=== PATIENT | female | born 1960 | race African-American/Black ===

== ENCOUNTER 2017-09-06 09:35 | Emergency (ER) | payer MEDICAID ==
[~2017-09-06] VITALS: Ht 177.8 cm; Wt 104.5 kg
[~2017-09-06 09:35] MED LIST: ALBU8.5H8 IH; ASPI81 PO; ATEN50TA PO; GABA-531 PO; GLIP10 PO; HYDR-3705 PO; LOSA50TA37 PO; METF500T4 PO
[2017-09-06] MEDS ORDERED: INSLAN SQ (09:41)
[2017-09-06] MEDS ORDERED: ATOR10TA84 PO (09:41)
[2017-09-06] MEDS ORDERED: SODIUM CHLORIDE 0.9% 1,000 ML IV ONE (10:00)
[2017-09-06 10:20] LABS: BASOPHILS # (AUTO) 0.04 K/uL (0.00-0.20); BASOPHILS % (AUTO) 0.5 % (0.0-2.0); EOSINOPHILS # (AUTO) 0.15 K/uL (0.00-0.70); EOSINOPHILS % (AUTO) 1.66 % (1.0-6.0); HEMOGLOBIN 12.1 g/dL (12.0-16.0); LYMPHOCYTES % (AUTO) 33.9 % (22.0-44.0); MEAN CORPUSCULAR HEMOGLOBIN 30.6 pg (26.0-34.0); MEAN CORPUSCULAR HGB CONC 33.4 G/dL (31.0-37.0); MEAN CORPUSCULAR VOLUME 92 fL (80-100); MONOCYTES # (AUTO) 0.5 K/uL (0.1-1.0); MONOCYTES % (AUTO) 5.1 % (2.0-9.0); NEUTROPHILS # (AUTO) 5.2 K/uL (1.8-7.7); NEUTROPHILS % (AUTO) 58.9 % (40.0-70.0); PLATELET COUNT (AUTO) 184 K/uL (150-450); RED BLOOD CELL COUNT(AUTO) 3.94 MIL/uL (4.00-5.20); RED CELL DISTRIBUTION WIDTH 12.8 % (11.5-14.5); WHITE BLOOD COUNT (AUTO) 8.9 K/uL (4.5-11.0)
[2017-09-06 10:32] LABS: ANION GAP 10 mmol/L (8-16); CALCIUM, TOTAL 9.4 mg/dL (8.8-10.5); CARBON DIOXIDE 25 mmol/L (22-29); CHLORIDE 102 mmol/L (98-107); CREATININE 0.83 mg/dL (0.60-1.30); GLOMERULAR FILTR. RATE CALC > 60 mL/min (>60); POTASSIUM 4.2 mmol/L (3.5-5.1); SODIUM SERUM 137 mmol/L (136-145); UREA NITROGEN, BLOOD 15 mg/dL (7-18)
[2017-09-06 10:45] VITALS: BP 135/78
[2017-09-06] MEDS ORDERED: ACETAMINOPHEN 325 MG TABLET PO ONE (10:45)
[2017-09-06 11:03] LABS: GLUCOSE,POINT OF CARE 361 MG/DL (70-110)
[2017-09-06 11:33] LABS: GLUCOSE COMMENT 1 Doctor Notified; GLUCOSE,POINT OF CARE 226 MG/DL (70-110)
== END 2017-09-06 12:01 | disposition home or self-care (01) ==
LOC: EMS 09:45
DX: E11.65 Type 2 diabetes mellitus with hyperglycemia (principal); J06.9 Acute upper respiratory infection, unspecified; Z79.4 Long term (current) use of insulin; J44.9 Chronic obstructive pulmonary disease, unspecified; E78.00 Pure hypercholesterolemia, unspecified; I10 Essential (primary) hypertension; Z87.891 Personal history of nicotine dependence; Z79.82 Long term (current) use of aspirin
CPT/HCPCS: 36415; 71010; 80048; 82962; 85025; 96360; 99285; J7030

== ENCOUNTER 2018-03-25 13:34 | Emergency (ER) | payer MEDICAID ==
[~2018-03-25] VITALS: Ht 172.7 cm; Wt 84.1 kg
[~2018-03-25 13:34] MED LIST changes: +ATOR10TA84 PO; -GLIP10 PO; +INSLAN SQ
[2018-03-25 13:41] VITALS: BP 180/100
[2018-03-25] MEDS ORDERED: IBUPROFEN 800 MG TABLET PO ONE (13:45)
[2018-03-25] MEDS ORDERED: PRED1 PO (14:11)
[2018-03-25] MEDS ORDERED: GLIP5 PO (14:11)
[2018-03-25 15:03] LABS: GLUCOSE,POINT OF CARE 348 MG/DL (70-110)
== END 2018-03-25 15:37 | disposition home or self-care (01) ==
LOC: EMS 13:36
DX: S60.221A Contusion of right hand, initial encounter (principal); E11.9 Type 2 diabetes mellitus without complications; J45.909 Unspecified asthma, uncomplicated; J44.9 Chronic obstructive pulmonary disease, unspecified; K21.9 Gastro-esophageal reflux disease without esophagitis; E78.00 Pure hypercholesterolemia, unspecified; I10 Essential (primary) hypertension; Z87.891 Personal history of nicotine dependence; W23.0XXA Caught, crushed, jammed, or pinched between moving objects, initial encounter; Y93.89 Activity, other specified; Y92.89 Other specified places as the place of occurrence of the external cause; Y99.8 Other external cause status
CPT/HCPCS: 82962; 99284

== ENCOUNTER 2018-04-29 05:53 | Day surgery (SDC) | payer MEDICAID ==
[~2018-04-29] VITALS: Ht 170.2 cm; Wt 100.5 kg
[~2018-04-29 05:53] MED LIST changes: -ALBU8.5H8 IH; -ASPI81 PO; -ATOR10TA84 PO; +ATOR40TA28 PO; +DULO60CA44 PO; +ESCI10TA PO; +FLUT16H NASAL; +GABA-529 PO; -GABA-531 PO; +GLIP10 PO; -HYDR-3705 PO; -INSLAN SQ; +LOSA25TA21 PO; -LOSA50TA37 PO; -METF500T4 PO; +METF500T6 PO; +MONT10TA21 PO; +OMEP10 PO; +SODIUM CHLORIDE 0.9% 1,000 ML IV ONE; +ZOLP10TA7 PO
[2018-04-29] MEDS ORDERED: LIDOCAINE HCL 2% 30 ML JELLY TP ONE (05:54)
[2018-04-29] MEDS ORDERED: BENZOCAINE 20% 50 MCG/SPRAY 57 GM TP ONE (05:54)
[2018-04-29] MEDS ORDERED: LIDOCAINE HCL 4% 50 ML SOLUTION TP ONE (05:54)
[2018-04-29] MEDS ORDERED: ALBUTEROL SULFATE 2.5 MG/0.5 ML NEB SOLUTION NEB ONE (05:54)
[2018-04-29 07:18] LABS: GLUCOMETER DEV NAME(LOC) SDS 5; GLUCOSE,POINT OF CARE 206 MG/DL (70-110)
[2018-04-29] MEDS ORDERED: SODIUM CHLORIDE 0.9% 1,000 ML IV ONE (07:30)
[2018-04-29] MEDS ORDERED: MIDAZOLAM HCL 2 MG/2 ML VIAL ONE (08:01)
[2018-04-29] MEDS ORDERED: FentaNYL CITRATE-PF 100 MCG/2 ML VIAL ONE (08:02)
[2018-04-29] MEDS ORDERED: MethylPREDNISolone SOD SUCC 125 MG/2 ML VIAL IVP ONE (08:45)
[2018-04-29] MEDS ORDERED: OXYGEN THERAPY IH SCH (20:00)
== END 2018-04-29 10:05 | disposition home or self-care (01) ==
LOC: SURGERY 05:53
PROVIDERS: ATTEND Internal Medicine Critical Care Medicine
DX: J38.4 Edema of larynx (principal); B37.0 Candidal stomatitis; J84.111 Idiopathic interstitial pneumonia, not otherwise specified; M19.90 Unspecified osteoarthritis, unspecified site; E11.9 Type 2 diabetes mellitus without complications; I10 Essential (primary) hypertension; J44.9 Chronic obstructive pulmonary disease, unspecified; K21.9 Gastro-esophageal reflux disease without esophagitis; Z79.84 Long term (current) use of oral hypoglycemic drugs; Z87.891 Personal history of nicotine dependence; Z79.899 Other long term (current) drug therapy
CPT/HCPCS: 31623; 31624; 71045; 82962; 87015; 87070; 87205; 87206; 87220; 88108; 88312; J2250; J2930; J3010; J7030; 87101

== ENCOUNTER 2018-08-21 11:35 | Emergency (ER) | payer MEDICAID ==
[~2018-08-21] VITALS: Ht 162.6 cm; Wt 100.8 kg
[~2018-08-21 11:35] MED LIST changes: +LOSA25TA16 PO; -LOSA25TA21 PO; +METF-960 PO; -METF500T6 PO; -SODIUM CHLORIDE 0.9% 1,000 ML IV ONE
[2018-08-21 12:15] LABS: EOSINOPHILS % (AUTO) 1.4 % (1.0-6.0); HEMATOCRIT 38.4 % (36-46); HEMOGLOBIN 12.9 g/dL (12.0-16.0); LYMPHOCYTES # (AUTO) 2.3 K/uL (1.0-4.8); LYMPHOCYTES % (AUTO) 40.1 % (22.0-44.0); MEAN CORPUSCULAR HEMOGLOBIN 30.2 pg (26.0-34.0); MEAN CORPUSCULAR HGB CONC 33.5 G/dL (31.0-37.0); MEAN CORPUSCULAR VOLUME 90 fL (80-100); MONOCYTES # (AUTO) 0.4 K/uL (0.1-1.0); MONOCYTES % (AUTO) 7.9 % (2.0-9.0); NEUTROPHILS # (AUTO) 2.8 K/uL (1.8-7.7); NEUTROPHILS % (AUTO) 49.6 % (40.0-70.0); PLATELET COUNT (AUTO) 184 K/uL (150-450); RED BLOOD CELL COUNT(AUTO) 4.26 MIL/uL (4.00-5.20); RED CELL DISTRIBUTION WIDTH 12.5 % (11.5-14.5)
[2018-08-21 12:23] LABS: ANION GAP 7 mmol/L (8-16); CALCIUM, TOTAL 9.3 mg/dL (8.8-10.5); CARBON DIOXIDE 30 mmol/L (22-29); CHLORIDE 97 mmol/L (98-107); CREATININE 0.97 mg/dL (0.60-1.30); GLOMERULAR FILTR. RATE CALC > 60 mL/min (>60); GLUCOSE,RANDOM 400 mg/dL (70-110); POTASSIUM 4.8 mmol/L (3.5-5.1); SODIUM SERUM 134 mmol/L (136-145); UREA NITROGEN, BLOOD 20 mg/dL (7-18)
[2018-08-21 12:27] LABS: PROTHROMBIN TIME 10.3 SEC (9.4-11.6)
[2018-08-21 12:30] LABS: ALANINE AMINOTRANSFERASE 41 U/L (12-78); ALBUMIN 3.5 g/dL (3.4-5.0); ALKALINE PHOSPHATASE 73 U/L (46-116); ASPARTATE AMINOTRANSFERASE 19 U/L (15-37); BILIRUBIN,TOTAL 0.6 mg/dL (0.1-1.0); CREATINE KINASE, TOTAL ONLY 73 U/L (26-192); LIPASE 127 U/L (73-393); TOTAL PROTEIN, SERUM 7.3 g/dL (6.4-8.2)
[2018-08-21 12:52] LABS: B-TYPE NATRIURETIC PEPTIDE 10 pg/mL (0-100)
[2018-08-21] MEDS ORDERED: MAGNESIUM HYDROXIDE SUSPENSION 30 ML UDCUP PO PRN (15:00)
[2018-08-21] MEDS ORDERED: INSULIN LISPRO 100 UNITS/ML SQ PRN (15:00)
[2018-08-21] MEDS ORDERED: ATORVASTATIN CALCIUM 20 MG TABLET PO SCH (15:00)
[2018-08-21] MEDS ORDERED: ACETAMINOPHEN 325 MG TABLET PO PRN (15:00)
[2018-08-21] MEDS ORDERED: DEXTROSE 50%-WATER 25 GM/50 ML SYRINGE IVP PRN (15:00)
[2018-08-21] MEDS ORDERED: ASPIRIN 81 MG CHEWABLE TABLET PO SCH (15:00)
[2018-08-21] MEDS ORDERED: MORPHINE SULFATE 2 MG/ML SYRINGE IVP PRN (15:00)
[2018-08-21] MEDS ORDERED: OxyCODONE HCL/ACETAMINOPHEN 5-325 MG TABLET PO PRN (15:00)
[2018-08-21 15:04] LABS: APPEARANCE,URINE CLEAR (CLEAR); BILIRUBIN,URINE NEGATIVE (NEGATIVE); GLUCOSE, URINE (UA) >=1000 mg/dL (NEGATIVE); KETONES,URINE NEGATIVE (NEGATIVE); LEUKOCYTE ESTERASE ,URINE NEGATIVE (NEGATIVE); NITRATE,URINE NEGATIVE (NEGATIVE); OCCULT BLOOD,URINE NEGATIVE (NEGATIVE); PROTEIN,URINE TRACE (NEGATIVE); UROBILINOGEN,URINE 0.2 mg/dL (<=1.0)
[2018-08-21 15:14] LABS: RBC,URINE None Seen /HPF (0-2); WBC,URINE 0-2 /HPF (0-5)
[2018-08-21 15:15] LABS: BACTERIA,URINE None Seen /HPF (None Seen); SQUAMOUS EPITHELIAL CELL,UR Few /LPF (None Seen)
[2018-08-21] MEDS ORDERED: HEPARIN SODIUM,PORCINE 5,000 UNITS/ML VIAL SQ SCH (16:00)
[2018-08-21 16:45] LABS: GLUCOSE,POINT OF CARE 321 MG/DL (70-110)
[2018-08-21] MEDS ORDERED: GlipiZIDE 5 MG TABLET PO SCH (17:00)
[2018-08-21] MEDS ORDERED: MetFORMIN HCL 500 MG TABLET PO SCH (17:30)
[2018-08-21 19:52] VITALS: BP 111/66
[2018-08-21] MEDS ORDERED: DOCUSATE SODIUM 100 MG CAPSULE PO SCH (21:00)
[2018-08-22] MEDS ORDERED: PANTOPRAZOLE SODIUM 40 MG DR TABLET PO SCH (09:00)
[2018-08-22] MEDS ORDERED: GlipiZIDE 5 MG TABLET PO SCH (17:00)
== END 2018-08-21 20:59 | disposition left against medical advice (07) ==
LOC: EMS 11:36 → 5S 18:09 → UNDOADMIN 18:09 → EMS 20:59
DX: R07.9 Chest pain, unspecified (principal); R42 Dizziness and giddiness; R10.9 Unspecified abdominal pain; J45.909 Unspecified asthma, uncomplicated; J44.9 Chronic obstructive pulmonary disease, unspecified; E11.9 Type 2 diabetes mellitus without complications; K21.9 Gastro-esophageal reflux disease without esophagitis; E78.00 Pure hypercholesterolemia, unspecified; I10 Essential (primary) hypertension; Z87.891 Personal history of nicotine dependence; Z79.84 Long term (current) use of oral hypoglycemic drugs
CPT/HCPCS: 36415 ×3; 71045; 80053; 81001; 82550; 82962; 83036; 83690; 83880; 84484; 85025; 85610; 93005; 96372; 99285; J1644

== ENCOUNTER 2019-06-23 08:57 | Emergency (ER) | payer MEDICAID ==
[~2019-06-23] VITALS: Ht 172.7 cm; Wt 95.7 kg
[~2019-06-23 08:57] MED LIST changes: -LOSA25TA16 PO; +LOSA25TA41 PO
[2019-06-23 09:15] VITALS: BP 142/106
== END 2019-06-23 09:40 | disposition left against medical advice (07) ==
LOC: EMS 08:58
DX: S19.9XXA Unspecified injury of neck, initial encounter (principal); J45.909 Unspecified asthma, uncomplicated; E11.9 Type 2 diabetes mellitus without complications; K21.9 Gastro-esophageal reflux disease without esophagitis; I10 Essential (primary) hypertension; E78.00 Pure hypercholesterolemia, unspecified; M19.90 Unspecified osteoarthritis, unspecified site; Z87.891 Personal history of nicotine dependence; Z79.84 Long term (current) use of oral hypoglycemic drugs; X58.XXXA Exposure to other specified factors, initial encounter; Y93.01 Activity, walking, marching and hiking; Y92.89 Other specified places as the place of occurrence of the external cause; Y99.8 Other external cause status

== ENCOUNTER → 2019-09-03 | Day surgery (SDC) | payer MEDICAID ==
[~2019-09-03] VITALS: Ht 172.7 cm; Wt 100.0 kg
[~2019-09-03] MED LIST changes: +ALBUTEROL SULFATE 2.5 MG/0.5 ML NEB SOLUTION NEB ONE; +BENZOCAINE 20% 50 MCG/SPRAY 57 GM TP ONE; +FentaNYL CITRATE-PF 100 MCG/2 ML VIAL ONE; +LIDOCAINE 2% 5 ML JELLY TP ONE; +LIDOCAINE 4% 50 ML SOLUTION TP ONE; +MIDAZOLAM HCL 2 MG/2 ML VIAL ONE; +MethylPREDNISolone SOD SUCC 125 MG/2 ML VIAL IVP ONE; +MethylPREDNISolone SOD SUCC 125 MG/2 ML VIAL ONE; +OXYGEN THERAPY IH SCH; +SODIUM CHLORIDE 0.9% 1,000 ML IV ONE
[2019-09-03 07:31] LABS: GLUCOMETER DEV NAME(LOC) SDS.; GLUCOSE,POINT OF CARE 134 MG/DL (70-110)
== END | disposition home or self-care (01) ==
LOC: SURGERY 06:20
PROVIDERS: ATTEND Internal Medicine Critical Care Medicine
DX: J38.4 Edema of larynx (principal); B37.0 Candidal stomatitis; J45.909 Unspecified asthma, uncomplicated; J98.8 Other specified respiratory disorders; I10 Essential (primary) hypertension; E11.9 Type 2 diabetes mellitus without complications; G47.33 Obstructive sleep apnea (adult) (pediatric); Z79.4 Long term (current) use of insulin; Z79.899 Other long term (current) drug therapy; Z79.01 Long term (current) use of anticoagulants; Z98.890 Other specified postprocedural states
CPT/HCPCS: 31623; 31624; 71045; 82962; 87015; 87070; 87101; 87205; 87206; 87220; 88108; 88312; 93005; J2250; J2930; J3010; J7030

== ENCOUNTER 2021-02-16 09:24 | Emergency (ER) | payer MEDICAID ==
[~2021-02-16] VITALS: Ht 175.3 cm; Wt 104.0 kg
[~2021-02-16 09:24] MED LIST changes: -ALBUTEROL SULFATE 2.5 MG/0.5 ML NEB SOLUTION NEB ONE; +ATEN-72 PO; -ATEN50TA PO; -BENZOCAINE 20% 50 MCG/SPRAY 57 GM TP ONE; +DULO-8 PO; -DULO60CA44 PO; +ESCI-8 PO; -ESCI10TA PO; -FentaNYL CITRATE-PF 100 MCG/2 ML VIAL ONE; +GABA-1216 PO; -GABA-529 PO; -LIDOCAINE 2% 5 ML JELLY TP ONE; -LIDOCAINE 4% 50 ML SOLUTION TP ONE; +LOSA25TA21 PO; -LOSA25TA41 PO; -MIDAZOLAM HCL 2 MG/2 ML VIAL ONE; +MONT-35 PO; -MONT10TA21 PO; -MethylPREDNISolone SOD SUCC 125 MG/2 ML VIAL IVP ONE; -MethylPREDNISolone SOD SUCC 125 MG/2 ML VIAL ONE; -OXYGEN THERAPY IH SCH; -SODIUM CHLORIDE 0.9% 1,000 ML IV ONE; -ZOLP10TA7 PO; +ZOLP10TA8 PO
[2021-02-16] MEDS ORDERED: MORPHINE SULFATE 4 MG/ML SYRINGE IVP ONE (09:45)
[2021-02-16] MEDS ORDERED: LIDOCAINE 5% TRANSDERMAL PATCH TD ONE (09:45)
[2021-02-16] MEDS ORDERED: KETOROLAC TROMETHAMINE 30 MG/ML VIAL IVP ONE (09:45)
[2021-02-16] MEDS ORDERED: CYCLOBENZAPRINE HCL 10 MG TABLET PO ONE (09:45)
[2021-02-16 10:25] LABS: GLUCOSE,POINT OF CARE 194 MG/DL (70-110)
[2021-02-16 11:23] LABS: APPEARANCE,URINE TURBID (CLEAR); GLUCOSE, URINE (UA) NEGATIVE (NEGATIVE); KETONES,URINE TRACE mg/dL (NEGATIVE); NITRATE,URINE NEGATIVE (NEGATIVE); OCCULT BLOOD,URINE SMALL (NEGATIVE); PH,URINE 5.5 (5.0-8.0); PROTEIN,URINE SEE CONFIRM (NEGATIVE)
[2021-02-16 11:32] LABS: BILIRUBIN,URINE PRELIM. POSITIVE (NEGATIVE); LEUKOCYTE ESTERASE ,URINE LARGE (NEGATIVE)
[2021-02-16 11:33] LABS: BACTERIA,URINE Many /HPF (None Seen); SQUAMOUS EPITHELIAL CELL,UR Many /LPF (None Seen); SULFOSALICYLIC ACID,URINE 3+ (Negative); WBC,URINE 51-100 /HPF (0-5)
[2021-02-16 13:00] VITALS: BP 150/82
== END 2021-02-16 13:02 | disposition home or self-care (01) ==
LOC: EMS 09:26
DX: N39.0 Urinary tract infection, site not specified (principal); J45.909 Unspecified asthma, uncomplicated; E11.9 Type 2 diabetes mellitus without complications; K21.9 Gastro-esophageal reflux disease without esophagitis; E78.00 Pure hypercholesterolemia, unspecified; I10 Essential (primary) hypertension; F17.210 Nicotine dependence, cigarettes, uncomplicated; Z79.84 Long term (current) use of oral hypoglycemic drugs
CPT/HCPCS: 72100; 73503; 81001; 82962; 87086; 96374; 96375; 99284; J1885; J2270

== ENCOUNTER 2021-04-17 05:35 | Emergency (ER) | payer MEDICAID ==
[~2021-04-17] VITALS: Ht 170.2 cm; Wt 100.0 kg
[2021-04-17 05:57] LABS: GLUCOSE,POINT OF CARE 304 MG/DL (70-110)
[2021-04-17] MEDS ORDERED: MORPHINE SULFATE 4 MG/ML SYRINGE IVP ONE ×3 (06:15→09:15)
[2021-04-17] MEDS ORDERED: KETOROLAC TROMETHAMINE 30 MG/ML VIAL IVP ONE (06:15)
[2021-04-17 07:17] LABS: BASOPHILS % (AUTO) 0.6 % (0.0-2.0); HEMATOCRIT 36.2 % (36-46); HEMOGLOBIN 12.1 g/dL (12.0-16.0); LYMPHOCYTES # (AUTO) 3.4 K/uL (1.0-4.8); LYMPHOCYTES % (AUTO) 36.5 % (22.0-44.0); MEAN CORPUSCULAR HEMOGLOBIN 31.4 pg (26.0-34.0); MEAN CORPUSCULAR HGB CONC 33.4 G/dL (31.0-37.0); MEAN CORPUSCULAR VOLUME 94 fL (80-100); MONOCYTES # (AUTO) 0.8 K/uL (0.1-1.0); MONOCYTES % (AUTO) 8.8 % (2.0-9.0); NEUTROPHILS % (AUTO) 53.1 % (40.0-70.0); PLATELET COUNT (AUTO) 144 K/uL (150-450); RED BLOOD CELL COUNT(AUTO) 3.84 MIL/uL (4.00-5.20); RED CELL DISTRIBUTION WIDTH 12.5 % (11.5-14.5)
[2021-04-17 07:28] LABS: ANION GAP 10 mmol/L (8-16); CALCIUM, TOTAL 9.2 mg/dL (8.8-10.5); CARBON DIOXIDE 27 mmol/L (22-29); CHLORIDE 101 mmol/L (98-107); CREATININE 0.86 mg/dL (0.60-1.30); GLOMERULAR FILTR. RATE CALC > 60 mL/min (>60); GLUCOSE,RANDOM 297 mg/dL (70-110); SODIUM SERUM 138 mmol/L (136-145); UREA NITROGEN, BLOOD 18 mg/dL (7-18)
[2021-04-17 08:04] VITALS: BP 154/90
== END 2021-04-17 09:40 | disposition home or self-care (01) ==
LOC: EMS 05:37
DX: M54.5 Low back pain (principal); E11.65 Type 2 diabetes mellitus with hyperglycemia; J45.909 Unspecified asthma, uncomplicated; K21.9 Gastro-esophageal reflux disease without esophagitis; E78.00 Pure hypercholesterolemia, unspecified; I10 Essential (primary) hypertension; F17.210 Nicotine dependence, cigarettes, uncomplicated; G89.29 Other chronic pain; Z79.84 Long term (current) use of oral hypoglycemic drugs; Z88.5 Allergy status to narcotic agent
CPT/HCPCS: 36415; 72148; 80048; 82962; 85025; 96374; 96375; 96376; 99284; J1885; J2270

== ENCOUNTER 2021-07-14 09:03 | Inpatient (IN) | payer MEDICAID ==
[~2021-07-14] VITALS: Ht 160 cm; Wt 79.5 kg
[~2021-07-14 09:03] MED LIST changes: -DULO-8 PO; +DULO60CA98 PO
[2021-07-14 10:56] LABS: EOSINOPHILS % (AUTO) 1.4 % (1.0-6.0); HEMATOCRIT 37.2 % (36-46); HEMOGLOBIN 12.1 g/dL (12.0-16.0); LYMPHOCYTES # (AUTO) 3.7 K/uL (1.0-4.8); LYMPHOCYTES % (AUTO) 32.7 % (22.0-44.0); MEAN CORPUSCULAR HEMOGLOBIN 31.1 pg (26.0-34.0); MEAN CORPUSCULAR HGB CONC 32.6 G/dL (31.0-37.0); MEAN CORPUSCULAR VOLUME 96 fL (80-100); MONOCYTES # (AUTO) 0.7 K/uL (0.1-1.0); MONOCYTES % (AUTO) 6.5 % (2.0-9.0); NEUTROPHILS # (AUTO) 6.6 K/uL (1.8-7.7); NEUTROPHILS % (AUTO) 58.4 % (40.0-70.0); PLATELET COUNT (AUTO) 153 K/uL (150-450); RED CELL DISTRIBUTION WIDTH 13.6 % (11.5-14.5)
[2021-07-14 11:10] LABS: CREATININE 1.67 mg/dL (0.60-1.30)
[2021-07-14 11:12] LABS: APPEARANCE,URINE CLOUDY (CLEAR); BILIRUBIN,URINE NEGATIVE (NEGATIVE); GLUCOSE, URINE (UA) NEGATIVE (NEGATIVE); KETONES,URINE NEGATIVE (NEGATIVE); NITRATE,URINE POSITIVE (NEGATIVE); OCCULT BLOOD,URINE NEGATIVE (NEGATIVE); PH,URINE 5.5 (5.0-8.0); PROTEIN,URINE NEGATIVE (NEGATIVE); UROBILINOGEN,URINE 0.2 mg/dL (<=1.0)
[2021-07-14 11:25] LABS: ALBUMIN 3.3 g/dL (3.4-5.0); BILIRUBIN,TOTAL 0.5 mg/dL (0.1-1.0); THYROID STIMULATING HORMONE 1.75 uIU/mL (0.36-3.74); TOTAL PROTEIN, SERUM 6.8 g/dL (6.4-8.2)
[2021-07-14 11:29] LABS: BACTERIA,URINE Many /HPF (None Seen); LEUKOCYTE ESTERASE ,URINE MODERATE (NEGATIVE); RBC,URINE None Seen /HPF (0-2)
[2021-07-14 11:30] LABS: SQUAMOUS EPITHELIAL CELL,UR Few /LPF (None Seen)
[2021-07-14] MEDS ORDERED: CefTRIAXone 1 GM/DEXTROSE 50 ML IV ONE (12:00)
[2021-07-14] MEDS ORDERED: ASPIRIN 325 MG TABLET PO ONE (13:30)
[2021-07-14] MEDS ORDERED: 0.9% SODIUM CHLORIDE 10 ML SYRINGE IVP PRN (14:15)
[2021-07-14] MEDS ORDERED: ACETAMINOPHEN 325 MG TABLET PO PRN ×2 (14:15→17:00)
[2021-07-14] MEDS ORDERED: ONDANSETRON HCL 4 MG/2 ML VIAL IVP PRN ×2 (14:15→17:00)
[2021-07-14 14:27] LABS: COVID AG,FIA SOURCE NASAL SWAB
[2021-07-14 16:12] VITALS: BP 161/70
[2021-07-14] MEDS ORDERED: MAGNESIUM HYDROXIDE SUSPENSION 30 ML UDCUP PO PRN (17:00)
[2021-07-14] MEDS ORDERED: BISACODYL 10 MG RECTAL RECTAL SUPPOSITORY PR PRN (17:00)
[2021-07-14] MEDS ORDERED: SODIUM CHLORIDE 0.9% 1,000 ML IV ONE (17:00)
[2021-07-14] MEDS ORDERED: MORPHINE SULFATE 2 MG/ML SYRINGE IVP PRN (17:00)
[2021-07-14] MEDS ORDERED: ZOLPIDEM TARTRATE 5 MG TABLET PO PRN (17:00)
[2021-07-14] MEDS ORDERED: GlipiZIDE 10 MG TABLET PO SCH (17:30)
[2021-07-14] MEDS: GlipiZIDE 10 MG TABLET PO SCH (18:22)
[2021-07-14 18:49] LABS: GLUCOMETER DEV NAME(LOC) 6N.1; GLUCOSE,POINT OF CARE 197 MG/DL (70-110)
[2021-07-14] MEDS: DOCUSATE SODIUM 100 MG CAPSULE PO SCH (20:14)
[2021-07-14] MEDS: GABAPENTIN 400 MG CAPSULE PO SCH (20:14)
[2021-07-14] MEDS: AmLODIPine BESYLATE 10 MG TABLET PO SCH (21:39)
[2021-07-14 22:24] LABS: GLUCOMETER DEV NAME(LOC) 6S.1; GLUCOSE,POINT OF CARE 269 MG/DL (70-110)
[2021-07-14] MEDS ORDERED: DEXTROSE 50%-WATER 25 GM/50 ML SYRINGE IVP PRN (22:45)
[2021-07-14 23:32] VITALS: BP 157/83
[2021-07-14] MEDS: HEPARIN SODIUM,PORCINE 5,000 UNITS/ML VIAL SQ SCH (23:34)
[2021-07-14] MEDS: INSULIN LISPRO 100 UNITS/ML SQ PRN (23:39)
[2021-07-15 03:22] VITALS: BP 143/79
[2021-07-15 05:29] LABS: AMPHET/METH SCREEN,URINE NEGATIVE (NEGATIVE); BARBITURATE SCREEN, URINE NEGATIVE (NEGATIVE); BENZODIAZEPINES SCREEN,URINE NEGATIVE (NEGATIVE); CANNABINOID SCREEN,URINE NEGATIVE (NEGATIVE); COCAINE SCREEN,URINE NEGATIVE (NEGATIVE); METHADONE SCREEN, URINE NEGATIVE (NEGATIVE); OPIATE SCREEN,URINE NEGATIVE (NEGATIVE)
[2021-07-15 05:41] LABS: PHENCYCLIDINE SCREEN,URINE NEGATIVE (NEGATIVE)
[2021-07-15] MEDS: INSULIN LISPRO 100 UNITS/ML SQ PRN ×4 (05:49→20:08)
[2021-07-15] MEDS: GlipiZIDE 10 MG TABLET PO SCH ×2 (05:50→16:58)
[2021-07-15 06:31] LABS: GLUCOMETER DEV NAME(LOC) 6S.1; GLUCOSE,POINT OF CARE 209 MG/DL (70-110)
[2021-07-15 07:06] LABS: BASOPHILS % (AUTO) 0.7 % (0.0-2.0); EOSINOPHILS % (AUTO) 1.2 % (1.0-6.0); HEMATOCRIT 34.9 % (36-46); HEMOGLOBIN 11.4 g/dL (12.0-16.0); LYMPHOCYTES # (AUTO) 3.1 K/uL (1.0-4.8); LYMPHOCYTES % (AUTO) 32.1 % (22.0-44.0); MEAN CORPUSCULAR HEMOGLOBIN 31.2 pg (26.0-34.0); MEAN CORPUSCULAR HGB CONC 32.8 G/dL (31.0-37.0); MEAN CORPUSCULAR VOLUME 95 fL (80-100); MONOCYTES # (AUTO) 0.6 K/uL (0.1-1.0); MONOCYTES % (AUTO) 5.9 % (2.0-9.0); NEUTROPHILS # (AUTO) 5.8 K/uL (1.8-7.7); NEUTROPHILS % (AUTO) 60.1 % (40.0-70.0); PLATELET COUNT (AUTO) 143 K/uL (150-450); RED BLOOD CELL COUNT(AUTO) 3.67 MIL/uL (4.00-5.20); RED CELL DISTRIBUTION WIDTH 13.3 % (11.5-14.5)
[2021-07-15 07:28] LABS: BILIRUBIN,TOTAL 0.2 mg/dL (0.1-1.0); CALCIUM, TOTAL 9.1 mg/dL (8.8-10.5); CREATININE 1.14 mg/dL (0.60-1.30); POTASSIUM 4.6 mmol/L (3.5-5.1); TOTAL PROTEIN, SERUM 6.6 g/dL (6.4-8.2)
[2021-07-15 08:30] VITALS: BP 152/80
[2021-07-15] MEDS: FLUTICASONE PROPIONATE 50 MCG/SPRAY 16 GM NASAL SPRAY NASAL SCH (08:54)
[2021-07-15] MEDS: ATENOLOL 50 MG TABLET PO SCH (08:55)
[2021-07-15] MEDS: PANTOPRAZOLE SODIUM 40 MG DR TABLET PO SCH (08:55)
[2021-07-15] MEDS: DOCUSATE SODIUM 100 MG CAPSULE PO SCH ×2 (08:55→20:06)
[2021-07-15] MEDS: HEPARIN SODIUM,PORCINE 5,000 UNITS/ML VIAL SQ SCH ×3 (08:55→23:12)
[2021-07-15] MEDS: ATORVASTATIN CALCIUM 40 MG TABLET PO SCH (08:55)
[2021-07-15] MEDS: GABAPENTIN 400 MG CAPSULE PO SCH ×2 (08:56→20:06)
[2021-07-15] MEDS: ESCITALOPRAM OXALATE 10 MG TABLET PO SCH ×2 (08:56→09:00)
[2021-07-15] MEDS: AmLODIPine BESYLATE 10 MG TABLET PO SCH (08:56)
[2021-07-15] MEDS: MONTELUKAST SODIUM 10 MG TABLET PO SCH (08:56)
[2021-07-15] MEDS: DULoxetine HCL 60 MG CAPSULE PO SCH ×2 (08:56→09:00)
[2021-07-15] MEDS: CefTRIAXone 1 GM/DEXTROSE 50 ML IV SCH (12:29)
[2021-07-15 12:37] LABS: GLUCOMETER DEV NAME(LOC) 6N.1; GLUCOSE,POINT OF CARE 161 MG/DL (70-110)
[2021-07-15 16:13] VITALS: BP 140/82
[2021-07-15 19:19] LABS: GLUCOMETER DEV NAME(LOC) 6N.1; GLUCOSE,POINT OF CARE 190 MG/DL (70-110)
[2021-07-15 19:43] VITALS: BP 133/67
[2021-07-15 23:06] VITALS: BP 132/75
[2021-07-16 01:23] LABS: GLUCOMETER DEV NAME(LOC) 6S.1; GLUCOSE,POINT OF CARE 265 MG/DL (70-110)
[2021-07-16 03:28] VITALS: BP 134/81
[2021-07-16] MEDS: GlipiZIDE 10 MG TABLET PO SCH ×2 (05:29→17:37)
[2021-07-16] MEDS: INSULIN LISPRO 100 UNITS/ML SQ PRN ×3 (05:30→20:44)
[2021-07-16 06:30] LABS: GLUCOMETER DEV NAME(LOC) 6N.1; GLUCOSE,POINT OF CARE 287 MG/DL (70-110)
[2021-07-16 07:51] VITALS: BP 148/80
[2021-07-16 07:55] LABS: BASOPHILS % (AUTO) 0.3 % (0.0-2.0); EOSINOPHILS % (AUTO) 1.7 % (1.0-6.0); HEMATOCRIT 33.2 % (36-46); LYMPHOCYTES # (AUTO) 2.8 K/uL (1.0-4.8); LYMPHOCYTES % (AUTO) 30.9 % (22.0-44.0); MEAN CORPUSCULAR HEMOGLOBIN 31.3 pg (26.0-34.0); MEAN CORPUSCULAR VOLUME 95 fL (80-100); MONOCYTES # (AUTO) 0.7 K/uL (0.1-1.0); MONOCYTES % (AUTO) 7.5 % (2.0-9.0); NEUTROPHILS # (AUTO) 5.4 K/uL (1.8-7.7); NEUTROPHILS % (AUTO) 59.6 % (40.0-70.0); PLATELET COUNT (AUTO) 133 K/uL (150-450); RED CELL DISTRIBUTION WIDTH 13.5 % (11.5-14.5)
[2021-07-16 08:17] LABS: ANION GAP 9 mmol/L (8-16); CALCIUM, TOTAL 9.3 mg/dL (8.8-10.5); CARBON DIOXIDE 25 mmol/L (22-29); CHLORIDE 103 mmol/L (98-107); CREATININE 0.74 mg/dL (0.60-1.30); GLOMERULAR FILTR. RATE CALC > 60 mL/min (>60); GLUCOSE,RANDOM 194 mg/dL (70-110); POTASSIUM 4.4 mmol/L (3.5-5.1); SODIUM SERUM 137 mmol/L (136-145); UREA NITROGEN, BLOOD 20 mg/dL (7-18)
[2021-07-16] MEDS: HEPARIN SODIUM,PORCINE 5,000 UNITS/ML VIAL SQ SCH ×3 (08:39→23:42)
[2021-07-16] MEDS: AmLODIPine BESYLATE 10 MG TABLET PO SCH (08:39)
[2021-07-16] MEDS: DOCUSATE SODIUM 100 MG CAPSULE PO SCH ×2 (08:39→20:35)
[2021-07-16] MEDS: PANTOPRAZOLE SODIUM 40 MG DR TABLET PO SCH (08:39)
[2021-07-16] MEDS: MONTELUKAST SODIUM 10 MG TABLET PO SCH (08:39)
[2021-07-16] MEDS: ATENOLOL 50 MG TABLET PO SCH (08:39)
[2021-07-16] MEDS: ESCITALOPRAM OXALATE 10 MG TABLET PO SCH ×2 (08:39→08:49)
[2021-07-16] MEDS: GABAPENTIN 400 MG CAPSULE PO SCH ×2 (08:39→20:35)
[2021-07-16] MEDS: ATORVASTATIN CALCIUM 40 MG TABLET PO SCH (08:39)
[2021-07-16] MEDS: DULoxetine HCL 60 MG CAPSULE PO SCH ×2 (08:39→08:49)
[2021-07-16] MEDS: FLUTICASONE PROPIONATE 50 MCG/SPRAY 16 GM NASAL SPRAY NASAL SCH (08:40)
[2021-07-16] MEDS: HYDROCODONE/ACETAMINOPHEN 10-325 MG TABLET PO PRN (11:14)
[2021-07-16] MEDS: CefTRIAXone 1 GM/DEXTROSE 50 ML IV SCH (12:42)
[2021-07-16 12:46] LABS: GLUCOMETER DEV NAME(LOC) 6N.1; GLUCOSE,POINT OF CARE 136 MG/DL (70-110)
[2021-07-16 15:43] VITALS: BP 139/76
[2021-07-16 20:03] VITALS: BP 157/87
[2021-07-16 20:32] VITALS: BP 139/75
[2021-07-16 23:41] LABS: GLUCOMETER DEV NAME(LOC) 6N.1; GLUCOSE,POINT OF CARE 195 MG/DL (70-110)
[2021-07-16] MEDS: ZOLPIDEM TARTRATE 10 MG TABLET PO PRN (23:42)
[2021-07-17] VITALS: BP 143/79
[2021-07-17 00:37] LABS: GLUCOMETER DEV NAME(LOC) 6S.1; GLUCOSE,POINT OF CARE 200 MG/DL (70-110)
[2021-07-17 04:09] VITALS: BP 149/84
[2021-07-17] MEDS: HYDROCODONE/ACETAMINOPHEN 10-325 MG TABLET PO PRN (04:27)
[2021-07-17] MEDS: GlipiZIDE 10 MG TABLET PO SCH ×2 (06:26→17:11)
[2021-07-17 07:19] LABS: GLUCOMETER DEV NAME(LOC) 6N.1; GLUCOSE,POINT OF CARE 135 MG/DL (70-110)
[2021-07-17 07:41] VITALS: BP 149/80
[2021-07-17] MEDS: DOCUSATE SODIUM 100 MG CAPSULE PO SCH ×2 (08:07→20:51)
[2021-07-17] MEDS: ATORVASTATIN CALCIUM 40 MG TABLET PO SCH (08:07)
[2021-07-17] MEDS: HEPARIN SODIUM,PORCINE 5,000 UNITS/ML VIAL SQ SCH ×2 (08:07→14:57)
[2021-07-17] MEDS: FLUTICASONE PROPIONATE 50 MCG/SPRAY 16 GM NASAL SPRAY NASAL SCH (08:07)
[2021-07-17] MEDS: ATENOLOL 50 MG TABLET PO SCH (08:08)
[2021-07-17] MEDS: GABAPENTIN 400 MG CAPSULE PO SCH ×2 (08:08→20:51)
[2021-07-17] MEDS: PANTOPRAZOLE SODIUM 40 MG DR TABLET PO SCH (08:08)
[2021-07-17] MEDS: AmLODIPine BESYLATE 10 MG TABLET PO SCH (08:08)
[2021-07-17] MEDS: MONTELUKAST SODIUM 10 MG TABLET PO SCH (08:08)
[2021-07-17] MEDS: DULoxetine HCL 60 MG CAPSULE PO SCH (08:08)
[2021-07-17] MEDS: ESCITALOPRAM OXALATE 10 MG TABLET PO SCH (08:08)
[2021-07-17 09:36] LABS: EOSINOPHILS % (AUTO) 1.4 % (1.0-6.0); HEMATOCRIT 32.5 % (36-46); HEMOGLOBIN 10.8 g/dL (12.0-16.0); LYMPHOCYTES # (AUTO) 2.4 K/uL (1.0-4.8); LYMPHOCYTES % (AUTO) 23.8 % (22.0-44.0); MEAN CORPUSCULAR HEMOGLOBIN 31.4 pg (26.0-34.0); MEAN CORPUSCULAR HGB CONC 33.3 G/dL (31.0-37.0); MEAN CORPUSCULAR VOLUME 94 fL (80-100); MONOCYTES # (AUTO) 0.7 K/uL (0.1-1.0); MONOCYTES % (AUTO) 7.3 % (2.0-9.0); NEUTROPHILS # (AUTO) 6.8 K/uL (1.8-7.7); NEUTROPHILS % (AUTO) 66.5 % (40.0-70.0); PLATELET COUNT (AUTO) 134 K/uL (150-450); RED BLOOD CELL COUNT(AUTO) 3.44 MIL/uL (4.00-5.20); RED CELL DISTRIBUTION WIDTH 13.2 % (11.5-14.5)
[2021-07-17 09:53] LABS: ANION GAP 9 mmol/L (8-16); CARBON DIOXIDE 25 mmol/L (22-29); CHLORIDE 102 mmol/L (98-107); GLOMERULAR FILTR. RATE CALC > 60 mL/min (>60); GLUCOSE,RANDOM 198 mg/dL (70-110); POTASSIUM 4.3 mmol/L (3.5-5.1); SODIUM SERUM 136 mmol/L (136-145); UREA NITROGEN, BLOOD 18 mg/dL (7-18)
[2021-07-17] MEDS ORDERED: IOHEXOL 350 MG/ML 150 ML VIAL ONE (11:08)
[2021-07-17] MEDS ORDERED: SODIUM CHLORIDE 0.9% 100 ML ONE (11:09)
[2021-07-17] MEDS: INSULIN LISPRO 100 UNITS/ML SQ PRN ×2 (12:15→17:14)
[2021-07-17] MEDS: CefTRIAXone 1 GM/DEXTROSE 50 ML IV SCH (12:35)
[2021-07-17 13:24] LABS: GLUCOMETER DEV NAME(LOC) 6S.1; GLUCOSE,POINT OF CARE 201 MG/DL (70-110)
[2021-07-17 16:10] VITALS: BP 152/81
[2021-07-17 20:06] VITALS: BP 135/79
[2021-07-17 23:33] VITALS: BP 133/77
[2021-07-18] MEDS: HYDROCODONE/ACETAMINOPHEN 10-325 MG TABLET PO PRN ×2 (04:26→20:54)
[2021-07-18 04:28] VITALS: BP 133/82
[2021-07-18 05:43] LABS: GLUCOMETER DEV NAME(LOC) 6N.1; GLUCOSE,POINT OF CARE 112 MG/DL (70-110)
[2021-07-18 05:43] LABS: GLUCOMETER DEV NAME(LOC) 6N.1; GLUCOSE,POINT OF CARE 112 MG/DL (70-110)
[2021-07-18 05:43] LABS: GLUCOMETER DEV NAME(LOC) 6N.1; GLUCOSE,POINT OF CARE 150 MG/DL (70-110)
[2021-07-18 08:00] VITALS: BP 133/82
[2021-07-18] MEDS: HEPARIN SODIUM,PORCINE 5,000 UNITS/ML VIAL SQ SCH ×5 (08:00→23:14)
[2021-07-18] MEDS: MONTELUKAST SODIUM 10 MG TABLET PO SCH (08:49)
[2021-07-18] MEDS: AmLODIPine BESYLATE 10 MG TABLET PO SCH (08:50)
[2021-07-18] MEDS: ATORVASTATIN CALCIUM 40 MG TABLET PO SCH (08:50)
[2021-07-18] MEDS: PANTOPRAZOLE SODIUM 40 MG DR TABLET PO SCH (08:50)
[2021-07-18] MEDS: DULoxetine HCL 60 MG CAPSULE PO SCH (08:50)
[2021-07-18] MEDS: ESCITALOPRAM OXALATE 10 MG TABLET PO SCH (08:50)
[2021-07-18] MEDS: FLUTICASONE PROPIONATE 50 MCG/SPRAY 16 GM NASAL SPRAY NASAL SCH (08:50)
[2021-07-18] MEDS: ATENOLOL 50 MG TABLET PO SCH (08:50)
[2021-07-18] MEDS: GABAPENTIN 400 MG CAPSULE PO SCH ×2 (08:50→20:53)
[2021-07-18] MEDS: GlipiZIDE 10 MG TABLET PO SCH ×2 (08:50→17:03)
[2021-07-18] MEDS: DOCUSATE SODIUM 100 MG CAPSULE PO SCH ×2 (08:51→20:53)
[2021-07-18] MEDS: INSULIN LISPRO 100 UNITS/ML SQ PRN ×2 (11:42→17:04)
[2021-07-18] MEDS: CefTRIAXone 1 GM/DEXTROSE 50 ML IV SCH (12:31)
[2021-07-18 13:03] LABS: GLUCOMETER DEV NAME(LOC) 6N.1; GLUCOSE,POINT OF CARE 171 MG/DL (70-110)
[2021-07-18 15:40] VITALS: BP 136/79
[2021-07-18] MEDS ORDERED: HEPA500018 SQ (15:41)
[2021-07-18 19:48] VITALS: BP 132/72
[2021-07-18 20:10] LABS: GLUCOMETER DEV NAME(LOC) 6S.1; GLUCOSE,POINT OF CARE 175 MG/DL (70-110)
[2021-07-18 21:32] LABS: GLUCOMETER DEV NAME(LOC) 6N.1; GLUCOSE,POINT OF CARE 126 MG/DL (70-110)
[2021-07-18 23:33] VITALS: BP 126/78
[2021-07-19 04:06] VITALS: BP 138/79
[2021-07-19] MEDS: GlipiZIDE 10 MG TABLET PO SCH ×3 (05:50→17:01)
[2021-07-19] MEDS: HYDROCODONE/ACETAMINOPHEN 10-325 MG TABLET PO PRN ×2 (07:15→20:22)
[2021-07-19 07:33] LABS: GLUCOMETER DEV NAME(LOC) 6N.1; GLUCOSE,POINT OF CARE 113 MG/DL (70-110)
[2021-07-19 07:50] VITALS: BP 136/83
[2021-07-19] MEDS: DOCUSATE SODIUM 100 MG CAPSULE PO SCH ×2 (08:18→20:22)
[2021-07-19] MEDS: GABAPENTIN 400 MG CAPSULE PO SCH ×2 (08:18→20:22)
[2021-07-19] MEDS: FLUTICASONE PROPIONATE 50 MCG/SPRAY 16 GM NASAL SPRAY NASAL SCH (08:18)
[2021-07-19] MEDS: ATENOLOL 50 MG TABLET PO SCH (08:18)
[2021-07-19] MEDS: AmLODIPine BESYLATE 10 MG TABLET PO SCH (08:18)
[2021-07-19] MEDS: ESCITALOPRAM OXALATE 10 MG TABLET PO SCH (08:18)
[2021-07-19] MEDS: PANTOPRAZOLE SODIUM 40 MG DR TABLET PO SCH (08:18)
[2021-07-19] MEDS: DULoxetine HCL 60 MG CAPSULE PO SCH (08:18)
[2021-07-19] MEDS: ATORVASTATIN CALCIUM 40 MG TABLET PO SCH (08:18)
[2021-07-19] MEDS: HEPARIN SODIUM,PORCINE 5,000 UNITS/ML VIAL SQ SCH ×3 (08:18→23:25)
[2021-07-19] MEDS: MONTELUKAST SODIUM 10 MG TABLET PO SCH (08:18)
[2021-07-19] MEDS: INSULIN LISPRO 100 UNITS/ML SQ PRN ×3 (11:35→20:37)
[2021-07-19] MEDS: CefTRIAXone 1 GM/DEXTROSE 50 ML IV SCH (12:58)
[2021-07-19 14:03] LABS: GLUCOMETER DEV NAME(LOC) 6N.1; GLUCOSE,POINT OF CARE 191 MG/DL (70-110)
[2021-07-19 15:16] VITALS: BP 132/73
[2021-07-19 20:32] VITALS: BP 134/70
[2021-07-19] MEDS: ZOLPIDEM TARTRATE 10 MG TABLET PO PRN (23:27)
[2021-07-19 23:54] VITALS: BP 127/76
[2021-07-20 04:00] VITALS: BP 126/65
[2021-07-20] MEDS: GlipiZIDE 10 MG TABLET PO SCH ×2 (05:49→17:30)
[2021-07-20] MEDS: INSULIN LISPRO 100 UNITS/ML SQ PRN ×2 (05:51→18:10)
[2021-07-20 06:19] LABS: GLUCOMETER DEV NAME(LOC) 6S.1; GLUCOSE,POINT OF CARE 194 MG/DL (70-110)
[2021-07-20 06:20] LABS: GLUCOMETER DEV NAME(LOC) 6S.1; GLUCOSE,POINT OF CARE 158 MG/DL (70-110)
[2021-07-20 07:25] LABS: GLUCOMETER DEV NAME(LOC) 6N.1; GLUCOSE,POINT OF CARE 172 MG/DL (70-110)
[2021-07-20] MEDS: HEPARIN SODIUM,PORCINE 5,000 UNITS/ML VIAL SQ SCH ×2 (08:00→16:00)
[2021-07-20 08:10] VITALS: BP 125/77
[2021-07-20] MEDS: ATENOLOL 50 MG TABLET PO SCH (09:00)
[2021-07-20] MEDS: AmLODIPine BESYLATE 10 MG TABLET PO SCH (09:00)
[2021-07-20] MEDS: ESCITALOPRAM OXALATE 10 MG TABLET PO SCH (09:00)
[2021-07-20] MEDS: ATORVASTATIN CALCIUM 40 MG TABLET PO SCH (09:00)
[2021-07-20] MEDS: PANTOPRAZOLE SODIUM 40 MG DR TABLET PO SCH (09:00)
[2021-07-20] MEDS: DOCUSATE SODIUM 100 MG CAPSULE PO SCH (09:00)
[2021-07-20] MEDS: GABAPENTIN 400 MG CAPSULE PO SCH (09:00)
[2021-07-20] MEDS: DULoxetine HCL 60 MG CAPSULE PO SCH (09:00)
[2021-07-20] MEDS: FLUTICASONE PROPIONATE 50 MCG/SPRAY 16 GM NASAL SPRAY NASAL SCH (09:00)
[2021-07-20] MEDS: MONTELUKAST SODIUM 10 MG TABLET PO SCH (09:00)
[2021-07-20] MEDS: CefTRIAXone 1 GM/DEXTROSE 50 ML IV SCH (12:23)
[2021-07-20 14:09] LABS: GLUCOMETER DEV NAME(LOC) 6N.1; GLUCOSE,POINT OF CARE 174 MG/DL (70-110)
[2021-07-20 15:10] VITALS: BP 141/73
[2021-07-20 19:15] LABS: GLUCOMETER DEV NAME(LOC) 6S.1; GLUCOSE,POINT OF CARE 233 MG/DL (70-110)
== END 2021-07-20 18:15 | DRG 463 ==
LOC: EMS 09:06 → 6N 15:35
PROVIDERS: ADMIT Internal Medicine; ATTEND Internal Medicine
DX: N12 Tubulo-interstitial nephritis, not specified as acute or chronic (principal); N17.9 Acute kidney failure, unspecified; M19.90 Unspecified osteoarthritis, unspecified site; E11.9 Type 2 diabetes mellitus without complications; M47.817 Spondylosis without myelopathy or radiculopathy, lumbosacral region; E66.9 Obesity, unspecified; E78.5 Hyperlipidemia, unspecified; I10 Essential (primary) hypertension; Z20.822 Contact with and (suspected) exposure to COVID-19; E78.00 Pure hypercholesterolemia, unspecified; J44.9 Chronic obstructive pulmonary disease, unspecified; K21.9 Gastro-esophageal reflux disease without esophagitis; M79.604 Pain in right leg; M79.605 Pain in left leg; Z86.73 Personal history of transient ischemic attack (TIA), and cerebral infarction without residual deficits; Z87.891 Personal history of nicotine dependence; Z68.31 Body mass index [BMI] 31.0-31.9, adult; Z88.8 Allergy status to other drugs, medicaments and biological substances; Z79.899 Other long term (current) drug therapy
CPT/HCPCS: 70450; 70551; 71045; 72132; 72148; 80048; 80053; 80307; 81001; 82550; 82962; 84443; 84484; 85025; 87077; 87086; 87186; 93005; 93306; 93880; 97161; 97166; 97530; 97535; 99291; A9575; J0696; J1644; J2270; J7030; J7050; 36415-L1; 36415-TC

== ENCOUNTER 2022-02-28 10:03 | Inpatient (IN) | payer MEDICAID ==
[~2022-02-28] VITALS: Ht 167.6 cm; Wt 100.2 kg
[~2022-02-28 10:03] MED LIST changes: +DULO-113 PO; -DULO60CA98 PO; +HEPA500018 SQ; +LOSA-381 PO; -LOSA25TA21 PO; +METF-1211 PO; -METF-960 PO
[2022-02-28] MEDS ORDERED: SODIUM CHLORIDE 0.9% 100 ML ONE (10:09)
[2022-02-28] MEDS ORDERED: IOHEXOL 350 MG/ML 100 ML VIAL ONE (10:10)
[2022-02-28 10:32] LABS: BASOPHILS % (AUTO) 1.6 % (0.0-2.0); HEMATOCRIT 39.6 % (36-46); HEMOGLOBIN 13.4 g/dL (12.0-16.0); LYMPHOCYTES # (AUTO) 3.2 K/uL (1.0-4.8); MEAN CORPUSCULAR HEMOGLOBIN 31.2 pg (26.0-34.0); MEAN CORPUSCULAR HGB CONC 33.8 G/dL (31.0-37.0); MEAN CORPUSCULAR VOLUME 92 fL (80-100); MONOCYTES # (AUTO) 0.5 K/uL (0.1-1.0); MONOCYTES % (AUTO) 5.4 % (2.0-9.0); NEUTROPHILS # (AUTO) 4.8 K/uL (1.8-7.7); PLATELET COUNT (AUTO) 166 K/uL (150-450); RED BLOOD CELL COUNT(AUTO) 4.29 MIL/uL (4.00-5.20); RED CELL DISTRIBUTION WIDTH 12.9 % (11.5-14.5)
[2022-02-28 10:39] LABS: ANION GAP 7 mmol/L (8-16); CALCIUM, TOTAL 9.6 mg/dL (8.8-10.5); CARBON DIOXIDE 28 mmol/L (22-29); CHLORIDE 100 mmol/L (98-107); CREATININE 0.99 mg/dL (0.60-1.30); GLOMERULAR FILTR. RATE CALC > 60 mL/min (>60); GLUCOSE,RANDOM 269 mg/dL (70-110); POTASSIUM 4.8 mmol/L (3.5-5.1); SODIUM SERUM 135 mmol/L (136-145); UREA NITROGEN, BLOOD 27 mg/dL (7-18)
[2022-02-28 10:43] LABS: PROTHROMBIN TIME 10.3 SEC (9.4-11.6)
[2022-02-28 10:48] LABS: ALANINE AMINOTRANSFERASE 25 U/L (12-78); ALBUMIN 3.7 g/dL (3.4-5.0); ALKALINE PHOSPHATASE 70 U/L (46-116); ASPARTATE AMINOTRANSFERASE 22 U/L (15-37); BILIRUBIN,TOTAL 0.5 mg/dL (0.1-1.0); TOTAL PROTEIN, SERUM 7.5 g/dL (6.4-8.2)
[2022-02-28 12:37] LABS: COVID AG,FIA SOURCE NASAL SWAB
[2022-02-28] MEDS ORDERED: ASPIRIN 325 MG TABLET PO ONE (13:00)
[2022-02-28] MEDS ORDERED: CLOPIDOGREL BISULFATE 75 MG TABLET PO ONE (13:00)
[2022-02-28] MEDS ORDERED: MAGNESIUM HYDROXIDE SUSPENSION 30 ML UDCUP PO PRN (13:30)
[2022-02-28] MEDS ORDERED: ACETAMINOPHEN 325 MG TABLET PO PRN (13:30)
[2022-02-28] MEDS ORDERED: ONDANSETRON HCL 4 MG/2 ML VIAL IVP PRN (13:30)
[2022-02-28] MEDS ORDERED: BISACODYL 10 MG RECTAL RECTAL SUPPOSITORY PR PRN (13:30)
[2022-02-28] MEDS ORDERED: MORPHINE SULFATE 2 MG/ML SYRINGE IVP PRN (13:30)
[2022-02-28] MEDS ORDERED: BUPR1PAT3 TP (13:49)
[2022-02-28] MEDS ORDERED: INSU100I26 SQ (13:49)
[2022-02-28] MEDS ORDERED: ASPI-1444 PO (13:49)
[2022-02-28] MEDS ORDERED: INSU100V36 SQ (13:49)
[2022-02-28] MEDS ORDERED: GABA-583 PO (13:49)
[2022-02-28] MEDS ORDERED: ALBU8HFA IH (13:49)
[2022-02-28] MEDS ORDERED: LOSA100T58 PO (13:49)
[2022-02-28] MEDS ORDERED: NALO4SPR3 NASAL (13:49)
[2022-02-28] MEDS ORDERED: HYDR-4069 PO (13:49)
[2022-02-28] MEDS ORDERED: GABA-1181 PO (13:49)
[2022-02-28] MEDS: GABAPENTIN 300 MG CAPSULE PO SCH ×2 (16:21→20:29)
[2022-02-28] MEDS: MetFORMIN HCL 500 MG TABLET PO SCH (16:32)
[2022-02-28 17:08] VITALS: BP 169/97
[2022-02-28 17:16] LABS: APPEARANCE,URINE CLEAR (CLEAR); BILIRUBIN,URINE NEGATIVE (NEGATIVE); GLUCOSE, URINE (UA) TRACE mg/dL (NEGATIVE); KETONES,URINE NEGATIVE (NEGATIVE); LEUKOCYTE ESTERASE ,URINE NEGATIVE (NEGATIVE); NITRATE,URINE NEGATIVE (NEGATIVE); OCCULT BLOOD,URINE NEGATIVE (NEGATIVE); PH,URINE 5.5 (5.0-8.0); PROTEIN,URINE 30-70 mg/dL (NEGATIVE); UROBILINOGEN,URINE <=1.0 mg/dL (<=1.0)
[2022-02-28 17:21] LABS: SPECIFIC GRAVITIY, URINE > 1.050 (1.003-1.030)
[2022-02-28 17:23] LABS: AMPHET/METH SCREEN,URINE NEGATIVE (NEGATIVE); BARBITURATE SCREEN, URINE NEGATIVE (NEGATIVE); BENZODIAZEPINES SCREEN,URINE NEGATIVE (NEGATIVE); CANNABINOID SCREEN,URINE NEGATIVE (NEGATIVE); COCAINE SCREEN,URINE NEGATIVE (NEGATIVE); METHADONE SCREEN, URINE NEGATIVE (NEGATIVE); OPIATE SCREEN,URINE NEGATIVE (NEGATIVE); PHENCYCLIDINE SCREEN,URINE NEGATIVE (NEGATIVE)
[2022-02-28 17:30] LABS: BACTERIA,URINE None Seen /HPF (None Seen); RBC,URINE 0-2 /HPF (0-2); SQUAMOUS EPITHELIAL CELL,UR Rare /LPF (None Seen); WBC,URINE 0-2 /HPF (0-5)
[2022-02-28] MEDS ORDERED: PNEUMOCOCCAL VACCINE POLYVALENT 0.5 ML VIAL [PPSV23] IM. ONE (18:30)
[2022-02-28 19:52] VITALS: BP 156/72
[2022-02-28] MEDS: HYDROCODONE/ACETAMINOPHEN 5-325 MG TABLET PO PRN (20:29)
[2022-02-28] MEDS: ATORVASTATIN CALCIUM 20 MG TABLET PO SCH (20:29)
[2022-02-28 23:22] VITALS: BP 140/74
[2022-03-01 04:17] VITALS: BP 151/83
[2022-03-01] MEDS: HYDROCODONE/ACETAMINOPHEN 5-325 MG TABLET PO PRN ×2 (05:43→17:59)
[2022-03-01 05:50] LABS: BASOPHILS % (AUTO) 0.3 % (0.0-2.0); EOSINOPHILS % (AUTO) 1.8 % (1.0-6.0); HEMATOCRIT 37.9 % (36-46); HEMOGLOBIN 12.4 g/dL (12.0-16.0); LYMPHOCYTES # (AUTO) 3.5 K/uL (1.0-4.8); LYMPHOCYTES % (AUTO) 50.2 % (22.0-44.0); MEAN CORPUSCULAR HEMOGLOBIN 30.6 pg (26.0-34.0); MEAN CORPUSCULAR HGB CONC 32.8 G/dL (31.0-37.0); MEAN CORPUSCULAR VOLUME 93 fL (80-100); MONOCYTES # (AUTO) 0.5 K/uL (0.1-1.0); MONOCYTES % (AUTO) 7.2 % (2.0-9.0); NEUTROPHILS # (AUTO) 2.8 K/uL (1.8-7.7); NEUTROPHILS % (AUTO) 40.5 % (40.0-70.0); PLATELET COUNT (AUTO) 159 K/uL (150-450); RED BLOOD CELL COUNT(AUTO) 4.06 MIL/uL (4.00-5.20); RED CELL DISTRIBUTION WIDTH 12.9 % (11.5-14.5)
[2022-03-01 05:51] LABS: GLUCOMETER DEV NAME(LOC) 5N.3; GLUCOSE,POINT OF CARE 275 MG/DL (70-110)
[2022-03-01 05:56] LABS: GLUCOMETER DEV NAME(LOC) 5N.3; GLUCOSE,POINT OF CARE 211 MG/DL (70-110)
[2022-03-01 06:13] LABS: ANION GAP 7 mmol/L (8-16); CALCIUM, TOTAL 9.2 mg/dL (8.8-10.5); CARBON DIOXIDE 28 mmol/L (22-29); CHLORIDE 99 mmol/L (98-107); GLOMERULAR FILTR. RATE CALC > 60 mL/min (>60); GLUCOSE,RANDOM 226 mg/dL (70-110); POTASSIUM 4.2 mmol/L (3.5-5.1); SODIUM SERUM 134 mmol/L (136-145); UREA NITROGEN, BLOOD 21 mg/dL (7-18)
[2022-03-01 07:18] VITALS: BP 141/93
[2022-03-01 08:25] LABS: THYROID STIMULATING HORMONE 2.61 uIU/mL (0.36-3.74)
[2022-03-01] MEDS: FLUTICASONE PROPIONATE 50 MCG/SPRAY 16 GM NASAL SPRAY NASAL SCH (08:37)
[2022-03-01] MEDS: ATENOLOL 50 MG TABLET PO SCH (08:37)
[2022-03-01] MEDS: PANTOPRAZOLE SODIUM 40 MG DR TABLET PO SCH (08:37)
[2022-03-01] MEDS: MetFORMIN HCL 500 MG TABLET PO SCH ×2 (08:37→17:39)
[2022-03-01] MEDS: LOSARTAN POTASSIUM 25 MG TABLET PO SCH (08:37)
[2022-03-01] MEDS: GABAPENTIN 300 MG CAPSULE PO SCH ×3 (08:37→20:18)
[2022-03-01] MEDS: ASPIRIN 81 MG CHEWABLE TABLET PO SCH (08:37)
[2022-03-01] MEDS: MONTELUKAST SODIUM 10 MG TABLET PO SCH (08:40)
[2022-03-01] MEDS ORDERED: ATORVASTATIN CALCIUM 40 MG TABLET PO SCH (09:00)
[2022-03-01 11:46] VITALS: BP 154/76
[2022-03-01] MEDS ORDERED: GADOTERATE MEGLUMINE 10 MMOL/20 ML VIAL IVP ONE (15:08)
[2022-03-01 15:20] VITALS: BP 144/88
[2022-03-01] MEDS ORDERED: DEXTROSE 50%-WATER 25 GM/50 ML SYRINGE IVP PRN (17:30)
[2022-03-01] MEDS: INSULIN LISPRO 100 UNITS/ML SQ PRN ×2 (17:50→20:27)
[2022-03-01 18:27] LABS: GLUCOMETER DEV NAME(LOC) 5N.3; GLUCOSE,POINT OF CARE 251 MG/DL (70-110)
[2022-03-01 19:38] VITALS: BP 129/72
[2022-03-01] MEDS: ATORVASTATIN CALCIUM 20 MG TABLET PO SCH (20:18)
[2022-03-01] MEDS: ZOLPIDEM TARTRATE 5 MG TABLET PO PRN (20:23)
[2022-03-01 23:36] LABS: GLUCOMETER DEV NAME(LOC) 5S.1B; GLUCOSE,POINT OF CARE 206 MG/DL (70-110)
[2022-03-01 23:53] VITALS: BP 130/75
[2022-03-02] MEDS: HYDROCODONE/ACETAMINOPHEN 5-325 MG TABLET PO PRN ×4 (00:08→20:13)
[2022-03-02 04:11] VITALS: BP 145/73
[2022-03-02] MEDS: INSULIN LISPRO 100 UNITS/ML SQ PRN ×4 (05:54→20:19)
[2022-03-02 06:48] LABS: BASOPHILS % (AUTO) 0.7 % (0.0-2.0); EOSINOPHILS % (AUTO) 0.9 % (1.0-6.0); HEMATOCRIT 36.8 % (36-46); HEMOGLOBIN 12.3 g/dL (12.0-16.0); LYMPHOCYTES # (AUTO) 3.4 K/uL (1.0-4.8); MEAN CORPUSCULAR HEMOGLOBIN 31.2 pg (26.0-34.0); MEAN CORPUSCULAR HGB CONC 33.5 G/dL (31.0-37.0); MEAN CORPUSCULAR VOLUME 93 fL (80-100); MONOCYTES # (AUTO) 0.5 K/uL (0.1-1.0); NEUTROPHILS # (AUTO) 3.4 K/uL (1.8-7.7); NEUTROPHILS % (AUTO) 45.4 % (40.0-70.0); PLATELET COUNT (AUTO) 145 K/uL (150-450); RED BLOOD CELL COUNT(AUTO) 3.96 MIL/uL (4.00-5.20); RED CELL DISTRIBUTION WIDTH 12.7 % (11.5-14.5)
[2022-03-02 06:59] LABS: ANION GAP 4 mmol/L (8-16); CALCIUM, TOTAL 9.2 mg/dL (8.8-10.5); CARBON DIOXIDE 29 mmol/L (22-29); CHLORIDE 101 mmol/L (98-107); CREATININE 1.03 mg/dL (0.60-1.30); GLOMERULAR FILTR. RATE CALC > 60 mL/min (>60); GLUCOSE,RANDOM 274 mg/dL (70-110); POTASSIUM 4.5 mmol/L (3.5-5.1); SODIUM SERUM 134 mmol/L (136-145); UREA NITROGEN, BLOOD 26 mg/dL (7-18)
[2022-03-02 07:14] VITALS: BP 140/78
[2022-03-02 08:46] LABS: GLUCOMETER DEV NAME(LOC) 5S.1B; GLUCOSE,POINT OF CARE 260 MG/DL (70-110)
[2022-03-02] MEDS: MONTELUKAST SODIUM 10 MG TABLET PO SCH (08:54)
[2022-03-02] MEDS: GABAPENTIN 300 MG CAPSULE PO SCH ×3 (08:54→20:13)
[2022-03-02] MEDS: ASPIRIN 81 MG CHEWABLE TABLET PO SCH (08:54)
[2022-03-02] MEDS: PANTOPRAZOLE SODIUM 40 MG DR TABLET PO SCH (08:54)
[2022-03-02] MEDS: MetFORMIN HCL 500 MG TABLET PO SCH ×2 (08:54→18:00)
[2022-03-02] MEDS: LOSARTAN POTASSIUM 25 MG TABLET PO SCH (08:55)
[2022-03-02] MEDS: ATENOLOL 50 MG TABLET PO SCH (08:55)
[2022-03-02] MEDS: FLUTICASONE PROPIONATE 50 MCG/SPRAY 16 GM NASAL SPRAY NASAL SCH (08:56)
[2022-03-02 12:00] VITALS: BP 134/70
[2022-03-02 12:33] LABS: CHOL/HDL RATIO 4.1 (3.9-5.7)
[2022-03-02 15:45] VITALS: BP 127/78
[2022-03-02 16:56] LABS: GLUCOMETER DEV NAME(LOC) 5N.3; GLUCOSE,POINT OF CARE 190 MG/DL (70-110)
[2022-03-02 16:56] LABS: GLUCOMETER DEV NAME(LOC) 5N.3; GLUCOSE,POINT OF CARE 221 MG/DL (70-110)
[2022-03-02 19:16] VITALS: BP 131/73
[2022-03-02] MEDS: ATORVASTATIN CALCIUM 20 MG TABLET PO SCH (20:13)
[2022-03-02] MEDS: ZOLPIDEM TARTRATE 5 MG TABLET PO PRN (21:49)
[2022-03-02 22:21] LABS: GLUCOMETER DEV NAME(LOC) 5S.1B; GLUCOSE,POINT OF CARE 236 MG/DL (70-110)
[2022-03-02 23:21] VITALS: BP 120/69
[2022-03-03 04:03] VITALS: BP 138/66
[2022-03-03] MEDS: INSULIN LISPRO 100 UNITS/ML SQ PRN ×2 (06:06→12:12)
[2022-03-03 06:20] LABS: BASOPHILS % (AUTO) 0.5 % (0.0-2.0); EOSINOPHILS % (AUTO) 1.5 % (1.0-6.0); HEMATOCRIT 34.6 % (36-46); HEMOGLOBIN 11.7 g/dL (12.0-16.0); LYMPHOCYTES # (AUTO) 3.6 K/uL (1.0-4.8); LYMPHOCYTES % (AUTO) 43.9 % (22.0-44.0); MEAN CORPUSCULAR HEMOGLOBIN 31.4 pg (26.0-34.0); MEAN CORPUSCULAR HGB CONC 33.7 G/dL (31.0-37.0); MEAN CORPUSCULAR VOLUME 93 fL (80-100); MONOCYTES # (AUTO) 0.6 K/uL (0.1-1.0); MONOCYTES % (AUTO) 7.5 % (2.0-9.0); NEUTROPHILS # (AUTO) 3.8 K/uL (1.8-7.7); NEUTROPHILS % (AUTO) 46.6 % (40.0-70.0); PLATELET COUNT (AUTO) 139 K/uL (150-450); RED BLOOD CELL COUNT(AUTO) 3.72 MIL/uL (4.00-5.20); RED CELL DISTRIBUTION WIDTH 12.8 % (11.5-14.5)
[2022-03-03] MEDS: HYDROCODONE/ACETAMINOPHEN 5-325 MG TABLET PO PRN ×2 (06:25→13:26)
[2022-03-03 06:35] LABS: ALANINE AMINOTRANSFERASE 22 U/L (12-78); ALBUMIN 2.9 g/dL (3.4-5.0); ALKALINE PHOSPHATASE 66 U/L (46-116); ANION GAP 5 mmol/L (8-16); ASPARTATE AMINOTRANSFERASE 12 U/L (15-37); BILIRUBIN,TOTAL 0.2 mg/dL (0.1-1.0); CALCIUM, TOTAL 8.7 mg/dL (8.8-10.5); CARBON DIOXIDE 28 mmol/L (22-29); CHLORIDE 100 mmol/L (98-107); GLOMERULAR FILTR. RATE CALC > 60 mL/min (>60); GLUCOSE,RANDOM 283 mg/dL (70-110); POTASSIUM 4.4 mmol/L (3.5-5.1); SODIUM SERUM 133 mmol/L (136-145); TOTAL PROTEIN, SERUM 6.1 g/dL (6.4-8.2); UREA NITROGEN, BLOOD 28 mg/dL (7-18)
[2022-03-03 07:41] VITALS: BP 128/68
[2022-03-03] MEDS: ATENOLOL 50 MG TABLET PO SCH (08:04)
[2022-03-03] MEDS: MetFORMIN HCL 500 MG TABLET PO SCH (08:05)
[2022-03-03] MEDS: LOSARTAN POTASSIUM 25 MG TABLET PO SCH (08:05)
[2022-03-03] MEDS: MONTELUKAST SODIUM 10 MG TABLET PO SCH (08:05)
[2022-03-03] MEDS: GABAPENTIN 300 MG CAPSULE PO SCH ×2 (08:05→16:31)
[2022-03-03] MEDS: FLUTICASONE PROPIONATE 50 MCG/SPRAY 16 GM NASAL SPRAY NASAL SCH (08:05)
[2022-03-03] MEDS: PANTOPRAZOLE SODIUM 40 MG DR TABLET PO SCH (08:05)
[2022-03-03] MEDS: ASPIRIN 81 MG CHEWABLE TABLET PO SCH (08:06)
[2022-03-03 11:56] LABS: GLUCOMETER DEV NAME(LOC) 5S.1B; GLUCOSE,POINT OF CARE 176 MG/DL (70-110)
[2022-03-03 12:04] VITALS: BP 141/93
[2022-03-03 15:40] VITALS: BP 143/80
[2022-03-03 18:02] LABS: GLUCOMETER DEV NAME(LOC) 5N.3; GLUCOSE,POINT OF CARE 252 MG/DL (70-110)
[2022-03-03] MEDS ORDERED: APIXABAN 5 MG TABLET PO SCH (21:00)
== END 2022-03-03 17:30 | DRG 45 ==
LOC: EMS 10:05 → 5N 13:27
PROVIDERS: ADMIT Internal Medicine; ATTEND Internal Medicine
DX: I63.81 Other cerebral infarction due to occlusion or stenosis of small artery (principal); E11.42 Type 2 diabetes mellitus with diabetic polyneuropathy; I11.9 Hypertensive heart disease without heart failure; E78.5 Hyperlipidemia, unspecified; Z68.35 Body mass index [BMI] 35.0-35.9, adult; E11.65 Type 2 diabetes mellitus with hyperglycemia; E66.01 Morbid (severe) obesity due to excess calories; J44.9 Chronic obstructive pulmonary disease, unspecified; I65.22 Occlusion and stenosis of left carotid artery; F80.81 Childhood onset fluency disorder; K21.9 Gastro-esophageal reflux disease without esophagitis; M19.90 Unspecified osteoarthritis, unspecified site; M79.602 Pain in left arm; Z20.822 Contact with and (suspected) exposure to COVID-19; Z86.73 Personal history of transient ischemic attack (TIA), and cerebral infarction without residual deficits; Z87.891 Personal history of nicotine dependence; Z79.4 Long term (current) use of insulin; Z88.8 Allergy status to other drugs, medicaments and biological substances; Z91.014 Allergy to mammalian meats; Z79.82 Long term (current) use of aspirin
CPT/HCPCS: 70496; 70498; 70553; 71045; 80048; 80053; 80061; 81001; 82948; 82962; 84443; 84484; 85025; 85610; 85730; 86850; 86900; 86901; 92610; 93005; 93306; 93880; 97116; 97162; 97530; 99291; J7050; Q9967; 36415-L1; 36415-TC; 70450; 70450-TC

== ENCOUNTER 2022-08-25 09:30 | Emergency (ER) | payer MEDICAID ==
[~2022-08-25] VITALS: Ht 177.8 cm; Wt 90.9 kg
[~2022-08-25 09:30] MED LIST changes: +ALBU8HFA IH; +ASPI-1444 PO; -ATOR40TA28 PO; +BUPR1PAT3 TP; -DULO-113 PO; -ESCI-8 PO; -GABA-1216 PO; +GABA-583 PO; -GLIP10 PO; +GLIP10TA10 PO; +HYDR-4069 PO; +INSU100I26 SQ; +INSU100V36 SQ; -LOSA-381 PO; +LOSA100T58 PO; +NALO4SPR3 NASAL; -OMEP10 PO
[2022-08-25] MEDS ORDERED: DOXYCYCLINE HYCLATE 100 MG TABLET PO ONE (10:00)
[2022-08-25] MEDS ORDERED: ACETAMINOPHEN 500 MG TABLET PO ONE (10:00)
[2022-08-25] MEDS ORDERED: BACITRACIN 28 GM OINTMENT TP ONE (10:00)
[2022-08-25] MEDS ORDERED: DOXY-354 PO (10:28)
[2022-08-25 11:02] VITALS: BP 168/94
[2022-08-25] MEDS ORDERED: BACITRACIN 0.9 GM PACKET OINTMENT TP ONE (11:30)
== END 2022-08-25 12:02 | disposition home or self-care (01) ==
LOC: EMS 10:21
DX: S41.102A Unspecified open wound of left upper arm, initial encounter (principal); L03.114 Cellulitis of left upper limb; E11.9 Type 2 diabetes mellitus without complications; E78.00 Pure hypercholesterolemia, unspecified; F10.20 Alcohol dependence, uncomplicated; J44.9 Chronic obstructive pulmonary disease, unspecified; I10 Essential (primary) hypertension; K21.9 Gastro-esophageal reflux disease without esophagitis; M19.90 Unspecified osteoarthritis, unspecified site; X58.XXXA Exposure to other specified factors, initial encounter; Y93.89 Activity, other specified; Y92.89 Other specified places as the place of occurrence of the external cause; Y99.8 Other external cause status; Z86.73 Personal history of transient ischemic attack (TIA), and cerebral infarction without residual deficits; Z88.5 Allergy status to narcotic agent
CPT/HCPCS: 82962; 99284

== ENCOUNTER 2022-10-17 13:10 | Inpatient (IN) | payer MEDICAID ==
[~2022-10-17] VITALS: Ht 167.6 cm; Wt 85.4 kg
[~2022-10-17 13:10] MED LIST changes: +DOXY-354 PO; -FLUT16H NASAL; +FLUT16SP NASAL; -GLIP10TA10 PO; -HEPA500018 SQ
[2022-10-17] MEDS ORDERED: SODIUM CHLORIDE 0.9% 100 ML ONE (13:30)
[2022-10-17] MEDS ORDERED: IOHEXOL 350 MG/ML 100 ML VIAL ONE (13:30)
[2022-10-17 13:57] LABS: BASOPHILS % (AUTO) 0.5 % (0.0-2.0); HEMATOCRIT 38.1 % (36-46); HEMOGLOBIN 12.4 g/dL (12.0-16.0); LYMPHOCYTES # (AUTO) 3.2 K/uL (1.0-4.8); LYMPHOCYTES % (AUTO) 35.6 % (22.0-44.0); MEAN CORPUSCULAR HEMOGLOBIN 29.1 pg (26.0-34.0); MEAN CORPUSCULAR HGB CONC 32.6 G/dL (31.0-37.0); MEAN CORPUSCULAR VOLUME 89 fL (80-100); MONOCYTES # (AUTO) 0.6 K/uL (0.1-1.0); NEUTROPHILS % (AUTO) 55.9 % (40.0-70.0); PLATELET COUNT (AUTO) 173 K/uL (150-450); RED BLOOD CELL COUNT(AUTO) 4.27 MIL/uL (4.00-5.20); RED CELL DISTRIBUTION WIDTH 12.8 % (11.5-14.5)
[2022-10-17 14:05] LABS: ANION GAP 7 mmol/L (8-16); CALCIUM, TOTAL 9.9 mg/dL (8.8-10.5); CARBON DIOXIDE 30 mmol/L (22-29); CHLORIDE 101 mmol/L (98-107); CREATININE 1.04 mg/dL (0.60-1.30); GLOMERULAR FILTR. RATE CALC > 60 mL/min (>60); GLUCOSE,RANDOM 257 mg/dL (70-110); POTASSIUM 3.2 mmol/L (3.5-5.1); SODIUM SERUM 138 mmol/L (136-145); UREA NITROGEN, BLOOD 18 mg/dL (7-18)
[2022-10-17] MEDS: CLOPIDOGREL BISULFATE 75 MG TABLET PO ONE ×2 (14:06→14:09)
[2022-10-17 14:10] LABS: ALANINE AMINOTRANSFERASE 17 U/L (12-78); ALBUMIN 3.5 g/dL (3.4-5.0); ALKALINE PHOSPHATASE 62 U/L (46-116); ASPARTATE AMINOTRANSFERASE 14 U/L (15-37); BILIRUBIN,TOTAL 0.5 mg/dL (0.1-1.0); TOTAL PROTEIN, SERUM 7.3 g/dL (6.4-8.2)
[2022-10-17 14:38] LABS: INR 1.1 (0.9-1.1); PROTHROMBIN TIME 11.2 SEC (9.4-11.6)
[2022-10-17] MEDS ORDERED: DEXTROSE 50%-WATER 25 GM/50 ML SYRINGE IVP PRN (15:00)
[2022-10-17] MEDS ORDERED: POTASSIUM CHL 10 MEQ/WATER 50 ML IV PRN (15:00)
[2022-10-17] MEDS: AmLODIPine BESYLATE 10 MG TABLET PO SCH (15:15)
[2022-10-17] MEDS ORDERED: ACETAMINOPHEN 325 MG TABLET PO PRN (15:15)
[2022-10-17] MEDS ORDERED: SODIUM CHLORIDE 0.9% 1,000 ML IV ONE (15:15)
[2022-10-17] MEDS ORDERED: ONDANSETRON HCL 4 MG/2 ML VIAL IVP PRN (15:15)
[2022-10-17] MEDS: ASPIRIN 81 MG CHEWABLE TABLET PO SCH (15:15)
[2022-10-17] MEDS: HEPARIN SODIUM,PORCINE 5,000 UNITS/ML VIAL SQ SCH (15:25)
[2022-10-17] MEDS: HydrALAZINE HCL 20 MG/ML VIAL IVP PRN (18:33)
[2022-10-17] MEDS: DOCUSATE SODIUM 100 MG CAPSULE PO SCH (21:00)
[2022-10-17 22:00] VITALS: BP 162/74
[2022-10-17] MEDS: NITROGLYCERIN 2% (1 GM=INCH) PACKET TP SCH (22:03)
[2022-10-17] MEDS: POTASSIUM CHLORIDE 20 MEQ ER TABLET PO PRN (22:32)
[2022-10-18] MEDS: HEPARIN SODIUM,PORCINE 5,000 UNITS/ML VIAL SQ SCH ×3 (00:26→18:01)
[2022-10-18 00:29] VITALS: BP 156/88
[2022-10-18 03:36] VITALS: BP 171/93
[2022-10-18] MEDS: HydrALAZINE HCL 20 MG/ML VIAL IVP PRN (03:38)
[2022-10-18] MEDS: NITROGLYCERIN 2% (1 GM=INCH) PACKET TP SCH ×4 (03:50→18:01)
[2022-10-18] MEDS: POTASSIUM CHLORIDE 20 MEQ ER TABLET PO PRN (06:26)
[2022-10-18 07:41] VITALS: BP 128/99
[2022-10-18] MEDS: DOCUSATE SODIUM 100 MG CAPSULE PO SCH ×2 (08:51→21:00)
[2022-10-18] MEDS: ASPIRIN 81 MG CHEWABLE TABLET PO SCH (08:51)
[2022-10-18] MEDS: FAMOTIDINE 20 MG TABLET PO SCH (08:52)
[2022-10-18] MEDS: AmLODIPine BESYLATE 10 MG TABLET PO SCH (08:52)
[2022-10-18 10:51] VITALS: BP 130/73
[2022-10-18] MEDS: INSULIN LISPRO 100 UNITS/ML SQ PRN ×2 (12:16→18:07)
[2022-10-18] MEDS ORDERED: ATOR-2 PO (15:06)
[2022-10-18] MEDS ORDERED: PREG50CA63 PO (15:06)
[2022-10-18] MEDS ORDERED: GABA-1181 PO (15:06)
[2022-10-18 15:43] VITALS: BP 147/94
[2022-10-18 19:51] LABS: GLUCOMETER DEV NAME(LOC) 5N.1C; GLUCOSE,POINT OF CARE 220 MG/DL (70-110)
[2022-10-18 19:55] VITALS: BP 140/79
[2022-10-19 00:23] VITALS: BP 159/86
[2022-10-19] MEDS: NITROGLYCERIN 2% (1 GM=INCH) PACKET TP SCH ×5 (00:40→17:54)
[2022-10-19] MEDS ORDERED: HALOPERIDOL LACTATE 5 MG/ML VIAL IM ONE (01:15)
[2022-10-19] MEDS ORDERED: DiphenhydrAMINE HCL 50 MG/ML VIAL IVP ONE (01:15)
[2022-10-19 04:16] VITALS: BP 141/89
[2022-10-19] MEDS: HEPARIN SODIUM,PORCINE 5,000 UNITS/ML VIAL SQ SCH ×3 (08:00→16:00)
[2022-10-19] MEDS: ASPIRIN 81 MG CHEWABLE TABLET PO SCH (10:13)
[2022-10-19] MEDS: DOCUSATE SODIUM 100 MG CAPSULE PO SCH ×2 (10:13→20:29)
[2022-10-19] MEDS: FAMOTIDINE 20 MG TABLET PO SCH (10:13)
[2022-10-19] MEDS: AmLODIPine BESYLATE 10 MG TABLET PO SCH (10:13)
[2022-10-19 11:23] VITALS: BP 183/113
[2022-10-19 12:21] LABS: GLUCOMETER DEV NAME(LOC) 5S.2B; GLUCOSE,POINT OF CARE 134 MG/DL (70-110)
[2022-10-19 13:06] VITALS: BP 142/88
[2022-10-19 15:05] VITALS: BP 148/79
[2022-10-19] MEDS: INSULIN LISPRO 100 UNITS/ML SQ PRN ×2 (17:52→20:38)
[2022-10-19 20:22] VITALS: BP 127/77
[2022-10-19] MEDS: CARVEDILOL 3.125 MG TABLET PO SCH (20:28)
[2022-10-20 00:24] VITALS: BP 127/76
[2022-10-20] MEDS: NITROGLYCERIN 2% (1 GM=INCH) PACKET TP SCH ×5 (00:25→23:52)
[2022-10-20] MEDS: HEPARIN SODIUM,PORCINE 5,000 UNITS/ML VIAL SQ SCH ×4 (00:25→23:51)
[2022-10-20 04:31] VITALS: BP 134/82
[2022-10-20] MEDS: INSULIN LISPRO 100 UNITS/ML SQ PRN ×4 (05:42→21:36)
[2022-10-20 06:39] LABS: ANION GAP 7 mmol/L (8-16); CALCIUM, TOTAL 9.7 mg/dL (8.8-10.5); CARBON DIOXIDE 27 mmol/L (22-29); CHLORIDE 103 mmol/L (98-107); CREATININE 0.87 mg/dL (0.60-1.30); GLUCOSE,RANDOM 169 mg/dL (70-110); POTASSIUM 3.6 mmol/L (3.5-5.1); SODIUM SERUM 137 mmol/L (136-145); UREA NITROGEN, BLOOD 16 mg/dL (7-18)
[2022-10-20 06:43] LABS: GLOMERULAR FILTR. RATE CALC > 60 mL/min (>60)
[2022-10-20 07:01] LABS: BASOPHILS % (AUTO) 0.5 % (0.0-2.0); EOSINOPHILS % (AUTO) 1.8 % (1.0-6.0); HEMATOCRIT 34.6 % (36-46); HEMOGLOBIN 11.3 g/dL (12.0-16.0); LYMPHOCYTES # (AUTO) 3.1 K/uL (1.0-4.8); LYMPHOCYTES % (AUTO) 46.4 % (22.0-44.0); MEAN CORPUSCULAR HEMOGLOBIN 29.4 pg (26.0-34.0); MEAN CORPUSCULAR HGB CONC 32.8 G/dL (31.0-37.0); MEAN CORPUSCULAR VOLUME 90 fL (80-100); MONOCYTES # (AUTO) 0.6 K/uL (0.1-1.0); MONOCYTES % (AUTO) 8.5 % (2.0-9.0); NEUTROPHILS # (AUTO) 2.8 K/uL (1.8-7.7); NEUTROPHILS % (AUTO) 42.8 % (40.0-70.0); PLATELET COUNT (AUTO) 156 K/uL (150-450); RED BLOOD CELL COUNT(AUTO) 3.86 MIL/uL (4.00-5.20); RED CELL DISTRIBUTION WIDTH 12.9 % (11.5-14.5)
[2022-10-20 08:13] VITALS: BP 146/80
[2022-10-20] MEDS ORDERED: CLOPIDOGREL BISULFATE 75 MG TABLET PO SCH (09:30)
[2022-10-20] MEDS: FAMOTIDINE 20 MG TABLET PO SCH (09:37)
[2022-10-20] MEDS: DOCUSATE SODIUM 100 MG CAPSULE PO SCH ×2 (09:37→20:20)
[2022-10-20] MEDS: AmLODIPine BESYLATE 10 MG TABLET PO SCH (09:37)
[2022-10-20] MEDS: ASPIRIN 81 MG CHEWABLE TABLET PO SCH (09:37)
[2022-10-20] MEDS: CARVEDILOL 3.125 MG TABLET PO SCH ×2 (09:37→20:20)
[2022-10-20 12:28] VITALS: BP 126/76
[2022-10-20 12:34] LABS: CHOLESTEROL 296 mg/dL (131-200); HDL CHOLESTEROL 59 mg/dL (40-60); LDL CHOL (CALC.) 217 mg/dL (0-130); TRIGLYCERIDES 101 mg/dL (15-150)
[2022-10-20 16:04] VITALS: BP 128/52
[2022-10-20] MEDS: ATORVASTATIN CALCIUM 20 MG TABLET PO SCH (20:20)
[2022-10-20] MEDS ORDERED: HALOPERIDOL LACTATE 5 MG/ML VIAL IM ONE (21:00)
[2022-10-20] MEDS ORDERED: DiphenhydrAMINE HCL 50 MG/ML VIAL IVP ONE (21:00)
[2022-10-20 21:36] LABS: GLUCOMETER DEV NAME(LOC) 5S.1B; GLUCOSE,POINT OF CARE 169 MG/DL (70-110)
[2022-10-20 21:36] LABS: GLUCOMETER DEV NAME(LOC) 5S.1B; GLUCOSE,POINT OF CARE 197 MG/DL (70-110)
[2022-10-20 21:36] LABS: GLUCOMETER DEV NAME(LOC) 5S.1B; GLUCOSE,POINT OF CARE 150 MG/DL (70-110)
[2022-10-20 21:36] LABS: GLUCOMETER DEV NAME(LOC) 5S.1B; GLUCOSE,POINT OF CARE 162 MG/DL (70-110)
[2022-10-21 00:03] VITALS: BP 154/84
[2022-10-21 04:46] VITALS: BP 150/88
[2022-10-21 06:11] LABS: GLUCOMETER DEV NAME(LOC) 5S.2B; GLUCOSE,POINT OF CARE 314 MG/DL (70-110)
[2022-10-21 06:11] LABS: GLUCOMETER DEV NAME(LOC) 5S.2B; GLUCOSE,POINT OF CARE 182 MG/DL (70-110)
[2022-10-21 07:02] LABS: BASOPHILS % (AUTO) 0.8 % (0.0-2.0); HEMATOCRIT 33.6 % (36-46); HEMOGLOBIN 11.3 g/dL (12.0-16.0); LYMPHOCYTES # (AUTO) 3.5 K/uL (1.0-4.8); MEAN CORPUSCULAR HEMOGLOBIN 29.6 pg (26.0-34.0); MEAN CORPUSCULAR HGB CONC 33.5 G/dL (31.0-37.0); MEAN CORPUSCULAR VOLUME 88 fL (80-100); MONOCYTES # (AUTO) 0.5 K/uL (0.1-1.0); NEUTROPHILS # (AUTO) 2.8 K/uL (1.8-7.7); NEUTROPHILS % (AUTO) 40.2 % (40.0-70.0); PLATELET COUNT (AUTO) 155 K/uL (150-450); RED BLOOD CELL COUNT(AUTO) 3.81 MIL/uL (4.00-5.20); RED CELL DISTRIBUTION WIDTH 12.9 % (11.5-14.5)
[2022-10-21] MEDS: INSULIN LISPRO 100 UNITS/ML SQ PRN ×4 (07:36→21:56)
[2022-10-21] MEDS: NITROGLYCERIN 2% (1 GM=INCH) PACKET TP SCH ×3 (07:39→17:19)
[2022-10-21 08:00] VITALS: BP 142/82
[2022-10-21] MEDS: AmLODIPine BESYLATE 10 MG TABLET PO SCH (08:40)
[2022-10-21] MEDS: HEPARIN SODIUM,PORCINE 5,000 UNITS/ML VIAL SQ SCH ×2 (08:41→17:16)
[2022-10-21] MEDS: CARVEDILOL 3.125 MG TABLET PO SCH ×2 (08:41→20:11)
[2022-10-21] MEDS: ASPIRIN 81 MG CHEWABLE TABLET PO SCH (08:41)
[2022-10-21] MEDS: DOCUSATE SODIUM 100 MG CAPSULE PO SCH ×2 (08:44→20:11)
[2022-10-21] MEDS: FAMOTIDINE 20 MG TABLET PO SCH (08:44)
[2022-10-21 15:33] LABS: APPEARANCE,URINE HAZY (CLEAR); BILIRUBIN,URINE NEGATIVE (NEGATIVE); GLUCOSE, URINE (UA) 300-500 mg/dL (NEGATIVE); KETONES,URINE NEGATIVE (NEGATIVE); LEUKOCYTE ESTERASE ,URINE LARGE (NEGATIVE); NITRATE,URINE NEGATIVE (NEGATIVE); OCCULT BLOOD,URINE NEGATIVE (NEGATIVE); PH,URINE 5.5 (5.0-8.0); PROTEIN,URINE 100-200,SEE CONFIRM mg/dL (NEGATIVE); UROBILINOGEN,URINE <=1.0 mg/dL (<=1.0)
[2022-10-21 15:43] LABS: BACTERIA,URINE Many /HPF (None Seen); RBC,URINE 0-2 /HPF (0-2); SQUAMOUS EPITHELIAL CELL,UR Moderate /LPF (None Seen); WBC,URINE 26-50 /HPF (0-5)
[2022-10-21 15:44] LABS: SULFOSALICYLIC ACID,URINE 2+ (Negative)
[2022-10-21 16:00] VITALS: BP 135/75
[2022-10-21] MEDS ORDERED: SODIUM CHLORIDE 0.9% 250 ML IV ONE (17:10)
[2022-10-21] MEDS: CefTRIAXone 1 GM/DEXTROSE 50 ML IV SCH (17:19)
[2022-10-21 17:26] LABS: GLUCOMETER DEV NAME(LOC) 5S.2B; GLUCOSE,POINT OF CARE 216 MG/DL (70-110)
[2022-10-21 17:27] LABS: GLUCOMETER DEV NAME(LOC) 5S.2B; GLUCOSE,POINT OF CARE 189 MG/DL (70-110)
[2022-10-21 19:17] VITALS: BP 126/72
[2022-10-21] MEDS: ATORVASTATIN CALCIUM 20 MG TABLET PO SCH (20:11)
[2022-10-21 21:56] LABS: GLUCOMETER DEV NAME(LOC) 5S.2B; GLUCOSE,POINT OF CARE 271 MG/DL (70-110)
[2022-10-22] VITALS (7 sets, daily range): BP systolic 141–164; BP diastolic 76–93
[2022-10-22 00:32] LABS: GLUCOMETER DEV NAME(LOC) 5S.2B; GLUCOSE,POINT OF CARE 191 MG/DL (70-110)
[2022-10-22] MEDS: HEPARIN SODIUM,PORCINE 5,000 UNITS/ML VIAL SQ SCH ×3 (00:56→17:13)
[2022-10-22] MEDS: NITROGLYCERIN 2% (1 GM=INCH) PACKET TP SCH ×4 (06:28→18:54)
[2022-10-22] MEDS: INSULIN LISPRO 100 UNITS/ML SQ PRN ×4 (06:30→22:07)
[2022-10-22 07:49] LABS: BASOPHILS % (AUTO) 0.9 % (0.0-2.0); EOSINOPHILS % (AUTO) 1.3 % (1.0-6.0); HEMATOCRIT 36.2 % (36-46); HEMOGLOBIN 12.1 g/dL (12.0-16.0); LYMPHOCYTES # (AUTO) 2.6 K/uL (1.0-4.8); LYMPHOCYTES % (AUTO) 36.5 % (22.0-44.0); MEAN CORPUSCULAR HEMOGLOBIN 30.3 pg (26.0-34.0); MEAN CORPUSCULAR HGB CONC 33.5 G/dL (31.0-37.0); MEAN CORPUSCULAR VOLUME 90 fL (80-100); MONOCYTES # (AUTO) 0.5 K/uL (0.1-1.0); MONOCYTES % (AUTO) 6.5 % (2.0-9.0); NEUTROPHILS % (AUTO) 54.8 % (40.0-70.0); PLATELET COUNT (AUTO) 168 K/uL (150-450)
[2022-10-22] MEDS: DOCUSATE SODIUM 100 MG CAPSULE PO SCH ×2 (08:48→21:59)
[2022-10-22] MEDS: AmLODIPine BESYLATE 10 MG TABLET PO SCH (08:49)
[2022-10-22] MEDS: FAMOTIDINE 20 MG TABLET PO SCH (08:49)
[2022-10-22] MEDS: CARVEDILOL 3.125 MG TABLET PO SCH ×2 (08:49→22:00)
[2022-10-22] MEDS: ASPIRIN 81 MG CHEWABLE TABLET PO SCH (08:49)
[2022-10-22 13:06] LABS: GLUCOMETER DEV NAME(LOC) 5S.2B; GLUCOSE,POINT OF CARE 169 MG/DL (70-110)
[2022-10-22] MEDS: CefTRIAXone 1 GM/DEXTROSE 50 ML IV SCH (17:13)
[2022-10-22 17:40] LABS: GLUCOMETER DEV NAME(LOC) 5N.1C; GLUCOSE,POINT OF CARE 193 MG/DL (70-110)
[2022-10-22 17:41] LABS: GLUCOMETER DEV NAME(LOC) 5S.2B; GLUCOSE,POINT OF CARE 162 MG/DL (70-110)
[2022-10-22] MEDS: ATORVASTATIN CALCIUM 20 MG TABLET PO SCH (21:59)
[2022-10-23] MEDS: NITROGLYCERIN 2% (1 GM=INCH) PACKET TP SCH ×6 (00:03→23:40)
[2022-10-23] MEDS: HEPARIN SODIUM,PORCINE 5,000 UNITS/ML VIAL SQ SCH ×5 (00:03→23:39)
[2022-10-23] MEDS ORDERED: SODIUM CHLORIDE 0.9% 500 ML IV ONE (00:33)
[2022-10-23] MEDS: CefTRIAXone 1 GM/DEXTROSE 50 ML IV SCH ×2 (00:43→23:40)
[2022-10-23 04:48] VITALS: BP 151/77
[2022-10-23] MEDS: INSULIN LISPRO 100 UNITS/ML SQ PRN ×4 (05:54→20:13)
[2022-10-23 07:01] LABS: GLUCOMETER DEV NAME(LOC) 6N.1; GLUCOSE,POINT OF CARE 181 MG/DL (70-110)
[2022-10-23 07:55] LABS: GLUCOMETER DEV NAME(LOC) 5N.1C; GLUCOSE,POINT OF CARE 227 MG/DL (70-110)
[2022-10-23 08:50] VITALS: BP 139/80
[2022-10-23] MEDS: ASPIRIN 81 MG CHEWABLE TABLET PO SCH (09:16)
[2022-10-23] MEDS: FAMOTIDINE 20 MG TABLET PO SCH (09:17)
[2022-10-23] MEDS: CARVEDILOL 3.125 MG TABLET PO SCH ×2 (09:17→20:13)
[2022-10-23] MEDS: DOCUSATE SODIUM 100 MG CAPSULE PO SCH ×2 (09:17→20:13)
[2022-10-23] MEDS: AmLODIPine BESYLATE 10 MG TABLET PO SCH (09:17)
[2022-10-23 15:41] LABS: GLUCOMETER DEV NAME(LOC) 6N.1; GLUCOSE,POINT OF CARE 172 MG/DL (70-110)
[2022-10-23 16:30] VITALS: BP 140/88
[2022-10-23 18:06] LABS: GLUCOMETER DEV NAME(LOC) 6N.1; GLUCOSE,POINT OF CARE 151 MG/DL (70-110)
[2022-10-23 19:30] VITALS: BP 142/67
[2022-10-23] MEDS: ATORVASTATIN CALCIUM 20 MG TABLET PO SCH (20:13)
[2022-10-23 22:36] LABS: GLUCOMETER DEV NAME(LOC) 6N.2B; GLUCOSE,POINT OF CARE 193 MG/DL (70-110)
[2022-10-24 04:40] VITALS: BP 146/87
[2022-10-24] MEDS: NITROGLYCERIN 2% (1 GM=INCH) PACKET TP SCH ×5 (06:09→23:39)
[2022-10-24] MEDS: INSULIN LISPRO 100 UNITS/ML SQ PRN ×3 (06:09→17:55)
[2022-10-24 07:06] LABS: GLUCOMETER DEV NAME(LOC) 6N.2B; GLUCOSE,POINT OF CARE 186 MG/DL (70-110)
[2022-10-24] MEDS: HEPARIN SODIUM,PORCINE 5,000 UNITS/ML VIAL SQ SCH ×3 (08:00→23:39)
[2022-10-24 08:19] VITALS: BP 123/71
[2022-10-24] MEDS: CARVEDILOL 3.125 MG TABLET PO SCH ×2 (08:33→20:21)
[2022-10-24] MEDS: ASPIRIN 81 MG CHEWABLE TABLET PO SCH (08:34)
[2022-10-24] MEDS: FAMOTIDINE 20 MG TABLET PO SCH (08:34)
[2022-10-24] MEDS: DOCUSATE SODIUM 100 MG CAPSULE PO SCH ×2 (08:34→20:22)
[2022-10-24] MEDS: AmLODIPine BESYLATE 10 MG TABLET PO SCH (08:34)
[2022-10-24 11:45] VITALS: BP 115/65
[2022-10-24] MEDS ORDERED: AMLO-258 PO (12:05)
[2022-10-24] MEDS ORDERED: CARV3 PO (12:06)
[2022-10-24] MEDS ORDERED: CEPH-558 PO (12:30)
[2022-10-24] MEDS ORDERED: FAMO20 PO (12:31)
[2022-10-24] MEDS ORDERED: INSU100V SQ (12:40)
[2022-10-24 16:34] VITALS: BP 136/74
[2022-10-24 17:17] LABS: GLUCOMETER DEV NAME(LOC) 6N.2B; GLUCOSE,POINT OF CARE 289 MG/DL (70-110)
[2022-10-24 18:01] LABS: GLUCOMETER DEV NAME(LOC) 6N.2B; GLUCOSE,POINT OF CARE 230 MG/DL (70-110)
[2022-10-24 19:56] VITALS: BP 127/58
[2022-10-24] MEDS: ATORVASTATIN CALCIUM 20 MG TABLET PO SCH (20:22)
[2022-10-24] MEDS: CefTRIAXone 1 GM/DEXTROSE 50 ML IV SCH (23:39)
[2022-10-25 05:16] LABS: GLUCOMETER DEV NAME(LOC) 6N.1; GLUCOSE,POINT OF CARE 230 MG/DL (70-110)
[2022-10-25] MEDS: NITROGLYCERIN 2% (1 GM=INCH) PACKET TP SCH ×4 (05:50→23:12)
[2022-10-25 08:06] VITALS: BP 135/82
[2022-10-25] MEDS: ASPIRIN 81 MG CHEWABLE TABLET PO SCH (08:27)
[2022-10-25] MEDS: AmLODIPine BESYLATE 10 MG TABLET PO SCH (08:27)
[2022-10-25] MEDS: FAMOTIDINE 20 MG TABLET PO SCH (08:28)
[2022-10-25] MEDS: CARVEDILOL 3.125 MG TABLET PO SCH ×2 (08:28→21:44)
[2022-10-25] MEDS: DOCUSATE SODIUM 100 MG CAPSULE PO SCH ×2 (08:37→21:44)
[2022-10-25] MEDS: HEPARIN SODIUM,PORCINE 5,000 UNITS/ML VIAL SQ SCH ×4 (08:40→23:13)
[2022-10-25] MEDS: INSULIN LISPRO 100 UNITS/ML SQ PRN ×4 (11:52→21:45)
[2022-10-25 12:31] LABS: GLUCOMETER DEV NAME(LOC) 6N.2B; GLUCOSE,POINT OF CARE 238 MG/DL (70-110)
[2022-10-25] MEDS ORDERED: HALOPERIDOL DECANOATE 100 MG/ML VIAL IM ONE (13:30)
[2022-10-25] MEDS: HALOPERIDOL LACTATE 5 MG/ML VIAL IM ONE ×2 (13:30→16:49)
[2022-10-25 16:02] VITALS: BP 129/83
[2022-10-25 19:06] LABS: GLUCOMETER DEV NAME(LOC) 6N.1; GLUCOSE,POINT OF CARE 171 MG/DL (70-110)
[2022-10-25] MEDS: ATORVASTATIN CALCIUM 20 MG TABLET PO SCH (21:44)
[2022-10-25] MEDS: CefTRIAXone 1 GM/DEXTROSE 50 ML IV SCH (23:12)
[2022-10-26 04:05] VITALS: BP 154/81
[2022-10-26 04:26] LABS: GLUCOMETER DEV NAME(LOC) 6N.1; GLUCOSE,POINT OF CARE 247 MG/DL (70-110)
[2022-10-26] MEDS: NITROGLYCERIN 2% (1 GM=INCH) PACKET TP SCH ×2 (06:13→12:09)
[2022-10-26] MEDS: INSULIN LISPRO 100 UNITS/ML SQ PRN ×2 (06:18→11:00)
[2022-10-26 07:41] LABS: GLUCOMETER DEV NAME(LOC) 6N.1; GLUCOSE,POINT OF CARE 163 MG/DL (70-110)
[2022-10-26] MEDS: HEPARIN SODIUM,PORCINE 5,000 UNITS/ML VIAL SQ SCH (08:00)
[2022-10-26] MEDS: ASPIRIN 81 MG CHEWABLE TABLET PO SCH (10:51)
[2022-10-26] MEDS: FAMOTIDINE 20 MG TABLET PO SCH (10:51)
[2022-10-26] MEDS: AmLODIPine BESYLATE 10 MG TABLET PO SCH (10:51)
[2022-10-26] MEDS: CARVEDILOL 3.125 MG TABLET PO SCH (10:51)
[2022-10-26] MEDS: DOCUSATE SODIUM 100 MG CAPSULE PO SCH (10:51)
[2022-10-26 19:56] LABS: GLUCOMETER DEV NAME(LOC) 6N.2B; GLUCOSE,POINT OF CARE 281 MG/DL (70-110)
== END 2022-10-26 15:45 | DRG 45 ==
LOC: EDUNIT# 13:10 → EMS 13:12 → 5S 18:28 → 6S 10-23 00:16
PROVIDERS: ADMIT Internal Medicine; ATTEND Internal Medicine
DX: I63.9 Cerebral infarction, unspecified (principal); R47.01 Aphasia; E11.9 Type 2 diabetes mellitus without complications; I10 Essential (primary) hypertension; F11.20 Opioid dependence, uncomplicated; K21.9 Gastro-esophageal reflux disease without esophagitis; M19.90 Unspecified osteoarthritis, unspecified site; E78.00 Pure hypercholesterolemia, unspecified; J44.9 Chronic obstructive pulmonary disease, unspecified; E78.5 Hyperlipidemia, unspecified; Z75.1 Person awaiting admission to adequate facility elsewhere; Z79.02 Long term (current) use of antithrombotics/antiplatelets; Z79.4 Long term (current) use of insulin; Z79.82 Long term (current) use of aspirin; Z87.891 Personal history of nicotine dependence; I69.320 Aphasia following cerebral infarction; Z79.899 Other long term (current) drug therapy; Z88.8 Allergy status to other drugs, medicaments and biological substances; Z91.014 Allergy to mammalian meats; Z91.018 Allergy to other foods
CPT/HCPCS: 70496; 70498; 70553; 71045; 80048; 80053; 80061; 81001; 81002; 82948; 82962; 84132; 84484; 85025; 85610; 85730; 86850; 86900; 86901; 87086; 87186; 92507; 92526; 92610; 93005; 93306; 93880; 97162; 97166; 97530; 97535; 99285; J0360; J0696; J1200; J1630; J1631; J1644; J7030; J7040; J7050; Q9967; 36415-L1; 36415-TC; 70450; 70450-TC